=== PATIENT | female | born 1935 ===

== ENCOUNTER 2016-12-29 16:00 | Inpatient (IN) | payer MEDICARE, MEDICAID ==
[2017-01-23] MEDS ORDERED: ACETAMINOPHEN 1,000 MG/100 ML BTL IV ONE (06:00)
[2017-01-23] MEDS ORDERED: CELECOXIB 100 MG CAPSULE PO ONE (06:00)
[2017-01-23] MEDS ORDERED: METOCLOPRAMIDE 10 MG TABLET PO ONE (06:00)
[2017-01-23] MEDS ORDERED: VANCOMYCIN HCL 1,000 MG in 0.9 % SODIUM CHLORIDE 250ML 250 ML IVPB ONE (06:00)
[2017-01-23] MEDS ORDERED: MECLIZINE 25 MG TABLET PO ONE (06:00)
[2017-02-14] MEDS ORDERED: METOCLOPRAMIDE 10 MG TABLET PO ONE (06:00)
[2017-02-14] MEDS ORDERED: ACETAMINOPHEN 1,000 MG/100 ML BTL IV ONE (06:00)
[2017-02-14] MEDS ORDERED: CELECOXIB 100 MG CAPSULE PO ONE (06:00)
[2017-02-14] MEDS ORDERED: VANCOMYCIN HCL 1,000 MG in 0.9 % SODIUM CHLORIDE 250ML 250 ML IVPB ONE (06:00)
[2017-02-14] MEDS ORDERED: MECLIZINE 25 MG TABLET PO ONE (06:00)
[2017-02-14 08:59] LABS: ABO GROUP B; ANTIBODY SCREEN NEGATIVE (NEGATIVE); RH TYPE POSITIVE
[2017-02-14 13:16] LABS: IMMED. SPIN CROSSMATCH COMPATIBLE
[2017-02-14 13:18] LABS: IMMED. SPIN CROSSMATCH COMPATIBLE
[2017-02-14] MEDS ORDERED: TRAMADOL HCL 50 MG TABLET PO PRN (15:36)
[2017-02-14] MEDS ORDERED: BISACODYL 10 MG SUPP RC PRN (15:36)
[2017-02-14] MEDS ORDERED: HYDROCODONE/APAP 5/325MG TABLET PO PRN ×2 (15:36)
[2017-02-14] MEDS ORDERED: HYDROCODONE/APAP 7.5/325MG TABLET PO PRN (15:36)
[2017-02-14] MEDS ORDERED: METOCLOPRAMIDE HCL 10 MG/2 ML VIAL IVP PRN (15:36)
[2017-02-14] MEDS ORDERED: ONDANSETRON HCL IV 4 MG/2 ML VIAL IVP PRN (15:36)
[2017-02-14] MEDS ORDERED: ACETAMINOPHEN W/ CODEINE 300MG/30MG TABLET PO PRN ×2 (15:36)
[2017-02-14] MEDS ORDERED: NALOXONE 0.4 MG/1 ML VIAL IVP PRN (15:36)
[2017-02-14] MEDS ORDERED: KETOROLAC 30 MG/ML VIAL IVP PRN ×2 (15:36)
[2017-02-14] MEDS ORDERED: ACETAMINOPHEN W/ CODEINE 300MG/60MG TABLET PO PRN ×2 (15:36)
[2017-02-14] MEDS ORDERED: ZOLPIDEM TARTRATE 5 MG TABLET PO PRN (15:36)
[2017-02-14] MEDS ORDERED: HYDROMORPHONE HCL 1MG/ML **SYRINGE IM PRN (15:36)
[2017-02-14] MEDS ORDERED: PROMETHAZINE HCL 12.5 MG in 0.9 % SODIUM CHLORIDE 100ML 50 ML IVPB PRN (15:36)
[2017-02-14] MEDS ORDERED: HYDROMORPHONE HCL 2 MG/ML VIAL IM PRN (15:36)
[2017-02-14] MEDS ORDERED: MAGNESIUM HYDROXIDE 30 ML UDC PO PRN (15:36)
[2017-02-14] MEDS ORDERED: ACETAMINOPHEN 325 MG TAB PO PRN (15:36)
[2017-02-14] MEDS ORDERED: MORPHINE SULFATE 5 MG/ML PFS IVP PRN ×4 (15:36)
[2017-02-14] MEDS ORDERED: EPHEDRINE SULFATE 50 MG/ML ML IV ONE (16:23)
[2017-02-14] MEDS ORDERED: 0.9 % SODIUM CHLORIDE 10 ML VIAL IVP ONE (16:23)
[2017-02-14] MEDS ORDERED: PHENYLEPHRINE HCL 10 MG/ML VIAL IVP ONE (16:23)
[2017-02-14] MEDS ORDERED: *PACU ONLY* KETAMINE HCL 10 MG/ML (20ML) VIAL IV ONE (16:23)
[2017-02-14] MEDS ORDERED: DIPHENHYDRAMINE HCL IV 50 MG/ML VIAL IVP ONE (16:23)
[2017-02-14] MEDS ORDERED: FENTANYL PF 100MCG/2ML VIAL IV ONE (16:23)
[2017-02-14] MEDS ORDERED: PROPOFOL 10 MG/ML VIAL IV ONE (16:23)
[2017-02-14] MEDS ORDERED: MIDAZOLAM HCL 2MG/2ML VIAL IV ONE (16:23)
[2017-02-14] MEDS ORDERED: HYDROMORPHONE HCL 2 MG/ML VIAL IV ONE (16:23)
[2017-02-14] MEDS ORDERED: LIDOCAINE 2% MDV (20MG/ML) 20ML VIAL IV ONE (16:23)
--- NOTE | 2017-02-14 17:23 | Physical Therapy Tx Note ---
Physical Therapy Tx Note - Treatment Note Physical Therapy Tx Note: Detail (The patient was not seen due to HTN . Contact was made with patient and patient's family. Will see patient tomorrow.)
[2017-02-14] MEDS: DEXTROSE 5 % AND 0.9 % NACL 1,000 ML IV PRN (17:39)
[2017-02-14] MEDS: DIPHENHYDRAMINE HCL 25 MG CAPSULE PO PRN (20:55)
[2017-02-14] MEDS: FERROUS SULFATE 325 MG TAB PO SCH (21:13)
[2017-02-14] MEDS: DOCUSATE SODIUM 100 MG CAPSULE PO SCH (21:13)
[2017-02-14] MEDS: VANCOMYCIN HCL 500 MG in 0.9 % SODIUM CHLORIDE 100ML 100 ML IVPB SCH (21:25)
[2017-02-14] MEDS: HYDROCODONE/APAP 7.5/325MG TABLET PO PRN (22:20)
[2017-02-15] MEDS: DEXTROSE 5 % AND 0.9 % NACL 1,000 ML IV PRN (03:28)
[2017-02-15] MEDS: HYDROCODONE/APAP 7.5/325MG TABLET PO PRN ×4 (05:33→22:01)
[2017-02-15 06:56] LABS: HEMATOCRIT 23.2 % (35.0-47.0); HEMOGLOBIN 7.4 gm/dl (11.6-16.0)
--- NOTE | 2017-02-15 07:15 | RADIOLOGY REPORT ---
EXAM: LEFT HIP, SINGLE AP VIEW HISTORY: POSTOP. TECHNIQUE: A single AP view of the left hip was obtained. Comparison: None. FINDINGS: Osteopenia. Status post total left hip arthroplasty. Soft tissue gas and swelling is likely postoperative. IMPRESSION: LEFT HIP ARTHROPLASTY CHANGE. NO GROSS COMPLICATING PROCESS. JOB NUMBER: [id number] MTDD
[2017-02-15] MEDS: RIVAROXABAN 10 MG TABLET PO SCH (09:42)
[2017-02-15] MEDS: DOCUSATE SODIUM 100 MG CAPSULE PO SCH ×2 (09:43→22:00)
[2017-02-15] MEDS: FERROUS SULFATE 325 MG TAB PO SCH ×2 (09:43→22:00)
[2017-02-15] MEDS: DIPHENHYDRAMINE HCL 25 MG CAPSULE PO PRN ×2 (09:43→17:16)
[2017-02-15] MEDS: VANCOMYCIN HCL 500 MG in 0.9 % SODIUM CHLORIDE 100ML 100 ML IVPB SCH (09:45)
[2017-02-15] MEDS ORDERED: CELECOXIB 100 MG CAPSULE PO SCH (10:00)
[2017-02-15] MEDS ORDERED: VANCOMYCIN HCL 1 GM VIAL IVPB ONE (10:50)
[2017-02-15] MEDS ORDERED: TRANEXAMIC ACID 1,000 MG/10 ML ML IV ONE (10:50)
[2017-02-15] MEDS ORDERED: BUPIVACAINE 0.5% W/EPI MPF 30 ML VIAL IVP ONE (10:50)
--- NOTE | 2017-02-15 12:00 | Rehab Evaluation ---
Patient Information - Patient Information Diagnosis: L RIMA revision Ordered Treatment: PT Evaluate and Treat Status: Initial Evaluation Surgery: Yes Date of Surgery: 02/14/17 Past Medical/Surgical Hx: PAST MEDICAL/SURGICAL HISTORY Past Surgical History D&C; cholecystectomy; left hip hemiarthroplasty 2004; tubal ligation; total hysterectomy;left and right total knee replacement; wrist sx PMH - Respiratory Hx Respiratory Disorders Yes Hx Asthma Yes Hx Bronchitis Yes Hx Chronic Obstructive Yes Pulmonary Disease (COPD) Hx Dyspnea Yes Hx Pneumonia Yes Hx Sleep Apnea Yes Hx Tuberculosis No: past + ppd Hx of CPAP No Hx of SOB Yes Hx of Oxygen Therapy Yes Comment: hx sinus problems PMH - Cardiovascular Hx Cardiovascular Disorders Yes Hx Abnormal EKG Yes Hx Cardiac Catheterization Yes: x2 Hx Edema Yes: ankles-none today Hx Heart Attack No Hx Hypertension Yes Hx Hypotension Yes Hx Irregular Heartbeat Yes: hx A-fib Hx Coronary Artery Disease Yes Hx of Mitral Valve Prolapse Yes Exercise Tolerance Poor Hx Transient Ischemic Attacks Yes (TIA) Comment: hyperlipidemia PMH - Neuro Hx Neurological Disorders Yes Hx Dementia Yes Hx Dizziness Yes Hx Headaches Yes Hx Neuropathy No Hx Parkinson's Disease No Hx Seizures No Hx Syncope No Hx Transient Ischemic Attacks Yes (TIA) PMH - GI Hx Gastrointestinal Disorders Yes Hx Abdominal Pain Yes Hx Celiac Disease No Hx Crohn's Disease No Hx Diverticulitis No Hx Gastrointestinal Bleed No Hx Gastroesophageal Reflux Yes Hx Hepatitis/Jaundice No Hx Hiatal Hernia Yes Hx Irritable Bowel Yes: constip & loose diarrhea Hx Liver Disease No Hx Nausea/Vomiting Yes Hx Obstructive Bowel No Hx Pancreatitis No Hx Rectal Bleeding Yes: sometimes with hemmorrhoids Hx Ulcer No Hx Weight Loss/Weight Gain No Comment: constipation PMH - Hx Genitourinary Disorders Yes Hx Bladder Problem Yes: wears Depends Hx Dialysis No Hx Kidney Stones No Hx Renal Disease No Hx Urinary Tract Infection No PMH - Endocrine Hx Endocrine Disorders No Hx Diabetes No Hx Thyroid Disease No PMH - Musculoskeletal Hx Musculoskeletal Disorders Yes Hx Arthritis Yes: soteo & rheumatoid Hx Back Injury Yes: broken back Hx Fibromyalgia No Hx Gout No Hx Musculoskeletal Disease No Hx Osteoporosis Yes PMH - Psych Hx Psychiatric Problems Yes Hx Anxiety Yes Hx Behavior Problems No Hx Depression No Hx Emotional Abuse No Hx Sexual Abuse No Hx Suicide Attempt No Major Depressive Episode Yes Feelings of Hopelessness Yes PMH - Hematology/Oncology Hx Hematology/Oncology No Disorders Hx Anemia Yes Hx Blood Disorders No Hx Bruising No Hx Cancer No Hx Chemotherapy No Hx Radiation Therapy No Hx Clotting Problems No Hx Sickle Cell Disease No Hx Unexplained Bleeding No Hx Blood Transfusion Reaction No Premorbid Status: Detail (The patient was ambulatory with assistive device prior to surgery.) Social History: Detail (The patient lives with granddaughter in a 2 story home with the patient living primarily on the first floor. The patient's home has 3 steps at the enterance without handrails ( with family assisting with stairclimbing). The patient's bathroom is equipped with a tub/shower combination with a tub seat with grab bars and a raised toilet seat. Prior to admission the patient's granddaughter assisted with dressing and showering patient.. 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 The patient has a wheeled walker, cane and a wheelchair.) Precautions: [place], Fall, Other (WBAT on the L LE and RIMA precautions. The patient has a hip abductor pillow.) - Time With Patient Total Time Spent With Patient (Min): 35 Treatment Procedures: Detail (Initial Evaluation.) Subjective Information - Subjective Information Per Patient (The patient had complaints of Lhip pain level 4 at the highest which increased with movement. The patient moaned in pain when lifing leg for transfers.) Objective Data - Mental Status Patient Orientation: Person, Place (The patient knew birthdate, current month but not year. The patient thought she was in the hospital for back surgery. The patient was able to follow simple commands but became anxious with transfers and bed mobility.) - ROM Not within normal limits (R LE AROM is WNL. L LE: hip is within total hip precautions, knee and ankle AROM is WNL.) - Strength/Tone Not within normal limits (The patient's R LE strength was functional ( generally 4+ to 5/5), L LE is 3- to 3/5, patient was not able to lift LE into and out of bed.) - Bed Mobility Needs Assist (Maximal PA of 2 with supine to and from sit.) - Transfers Needs Assist (The patient acheived sit to stand transfer with moderate assist of 2. The patient achieved a bed to chair transfer with CG of 1 and verbal cues with use of wheeled walker. The patient exhibited shortness of breath with activity.) - Balance Balance Sitting: Good Balance Standing: Fair (The patient used the walker to balance but was able to balance without support when reaching back for the chair.) - Gait Detail (The patient took 4 to 5 shuffling steps from bed to chair with wheeled walker WBAT on the L LE with CG of 1 and verbal cues for proper technique.) Therapy Assessment - Therapy Assessment Detail (The patient required maximal assist with bed mobility and moderate assist with transfers. The patient was fatigued with ambulating a few steps and transferring. The patient will require several sessions of PT to achieve PT goals and may require subacute rehabilitation.) Problem List - Problem List Physical Therapy Problem List: Detail (1) Assistance with bed mobility and transfers 2) Limited ambulation with assistive device 3) Mental Status 4) Shortness of Breath with activity, Decreased ability to complete prolonged physical activity.) Goals - Goals Physical Therapy Goals: 1)The patient will ambulate with assistive device household distances with CG/ supervision. 2) The patient will ambulate on stairs with C/G , minimal assist of 1. 3) The patient will be independent with bed mobility. 4) The patient will be independent with sit to and from stand and toilet transfer. 5) The patient will be able to complete HEP with supervision of family members. 6) The patient will follow RIMA precautions with supervision and cueing of family members. Prognosis - Prognosis Moderate Plan - Plan Physical Therapy Plan: PT 1-2 times a day for gait training, transfer training, bed mobility and instruction in HEP.
[2017-02-15] MEDS ORDERED: FUROSEMIDE 20 MG TABLET PO ONE (13:03)
[2017-02-15 13:51] LABS: IMMED. SPIN CROSSMATCH COMPATIBLE
[2017-02-15 13:51] LABS: IMMED. SPIN CROSSMATCH COMPATIBLE
[2017-02-15] MEDS: AL HYDROX/MAG HYDROX 30ML UD PO PRN ×2 (14:15→22:05)
--- NOTE | 2017-02-15 15:19 | Physical Therapy Tx Note ---
Physical Therapy Tx Note - Treatment Note Tolerated: Poor Total Time Spent With Patient: 5 Physical Therapy Tx Note: Detail (Pt was supine in bed resting upon arrival. PT was notified at that time that Pt. was getting blood infusion and she was to remain supine and resting during that time and it would be approximately 6 hours. FAT PRESSROOM WORKER spoke with Pt. about continuing with ex's in bed as samantha. Pt. to be seen tomorrow for PT.) Physical Therapy Problem List: Detail (1) Assistance with bed mobility and transfers 2) Limited ambulation with assistive device 3) Mental Status 4) Shortness of Breath with activity, Decreased ability to complete prolonged physical activity.) Physical Therapy Goals: 1)The patient will ambulate with assistive device household distances with CG/ supervision. 2) The patient will ambulate on stairs with C/G , minimal assist of 1. 3) The patient will be independent with bed mobility. 4) The patient will be independent with sit to and from stand and toilet transfer. 5) The patient will be able to complete HEP with supervision of family members. 6) The patient will follow RIMA precautions with supervision and cueing of family members. Prognosis: Moderate Physical Therapy Plan: PT 1-2 times a day for gait training, transfer training, bed mobility and instruction in HEP.
--- NOTE | 2017-02-15 15:23 | Rehab Evaluation ---
Patient Information - Patient Information Diagnosis: L RIMA revision Ordered Treatment: OT Evaluate and Treat Status: Initial Evaluation Surgery: Yes (left hip arthoroplasty) Date of Surgery: 02/14/17 Past Medical/Surgical Hx: PAST MEDICAL/SURGICAL HISTORY Past Surgical History D&C; cholecystectomy; left hip hemiarthroplasty 2004; tubal ligation; total hysterectomy;left and right total knee replacement; wrist sx PMH - Respiratory Hx Respiratory Disorders Yes Hx Asthma Yes Hx Bronchitis Yes Hx Chronic Obstructive Yes Pulmonary Disease (COPD) Hx Dyspnea Yes Hx Pneumonia Yes Hx Sleep Apnea Yes Hx Tuberculosis No: past + ppd Hx of CPAP No Hx of SOB Yes Hx of Oxygen Therapy Yes Comment: hx sinus problems PMH - Cardiovascular Hx Cardiovascular Disorders Yes Hx Abnormal EKG Yes Hx Cardiac Catheterization Yes: x2 Hx Edema Yes: ankles-none today Hx Heart Attack No Hx Hypertension Yes Hx Hypotension Yes Hx Irregular Heartbeat Yes: hx A-fib Hx Coronary Artery Disease Yes Hx of Mitral Valve Prolapse Yes Exercise Tolerance Poor Hx Transient Ischemic Attacks Yes (TIA) Comment: hyperlipidemia PMH - Neuro Hx Neurological Disorders Yes Hx Dementia Yes Hx Dizziness Yes Hx Headaches Yes Hx Neuropathy No Hx Parkinson's Disease No Hx Seizures No Hx Syncope No Hx Transient Ischemic Attacks Yes (TIA) PMH - GI Hx Gastrointestinal Disorders Yes Hx Abdominal Pain Yes Hx Celiac Disease No Hx Crohn's Disease No Hx Diverticulitis No Hx Gastrointestinal Bleed No Hx Gastroesophageal Reflux Yes Hx Hepatitis/Jaundice No Hx Hiatal Hernia Yes Hx Irritable Bowel Yes: constip & loose diarrhea Hx Liver Disease No Hx Nausea/Vomiting Yes Hx Obstructive Bowel No Hx Pancreatitis No Hx Rectal Bleeding Yes: sometimes with hemmorrhoids Hx Ulcer No Hx Weight Loss/Weight Gain No Comment: constipation PMH - Hx Genitourinary Disorders Yes Hx Bladder Problem Yes: wears Depends Hx Dialysis No Hx Kidney Stones No Hx Renal Disease No Hx Urinary Tract Infection No PMH - Endocrine Hx Endocrine Disorders No Hx Diabetes No Hx Thyroid Disease No PMH - Musculoskeletal Hx Musculoskeletal Disorders Yes Hx Arthritis Yes: soteo & rheumatoid Hx Back Injury Yes: broken back Hx Fibromyalgia No Hx Gout No Hx Musculoskeletal Disease No Hx Osteoporosis Yes PMH - Psych Hx Psychiatric Problems Yes Hx Anxiety Yes Hx Behavior Problems No Hx Depression No Hx Emotional Abuse No Hx Sexual Abuse No Hx Suicide Attempt No Major Depressive Episode Yes Feelings of Hopelessness Yes PMH - Hematology/Oncology Hx Hematology/Oncology No Disorders Hx Anemia Yes Hx Blood Disorders No Hx Bruising No Hx Cancer No Hx Chemotherapy No Hx Radiation Therapy No Hx Clotting Problems No Hx Sickle Cell Disease No Hx Unexplained Bleeding No Hx Blood Transfusion Reaction No Premorbid Status: Detail (The patient was ambulatory with assistive device prior to surgery.) Social History: Detail (The patient lives with granddaughter in a 2 story home with the patient living primarily on the first floor. The patient's home has 3 steps at the entrance without handrails ( with family assisting with stairclimbing). The patient's bathroom is equipped with a tub/shower combination with a tub seat with grab bars and a standard height toilet seat with commode. Prior to admission the patient's granddaughter assisted with dressing and showering patient. 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 The patient has a wheeled walker, cane and a wheelchair.) Precautions: [place], Fall, Other (WBAT on the L LE and RIMA precautions. The patient has a hip abductor pillow.) - Time With Patient Total Time Spent With Patient (Min): 45 Treatment Procedures: Detail (OT eval moderate complexity) Subjective Information - Subjective Information Per Patient Objective Data - Pain Pain Present: Yes (09/12 left hip) - Mental Status Patient Orientation: Person (Pt oriented to birthday, age, month, "hospital", reports she is here a back operation and was unsure of the year.) - Visual Perception Appears within normal limits for therapeutic activities (Pt wears glasses at all times.) - ROM Not within normal limits (Tyree UE grossly WNL with the exception of left shoulder flexion which is limited from arthritis per granddaughter.) - Strength/Tone Not within normal limits (Right shoulder, tyree elbows, pharmacist in charge 4+/5, left shoulder 4 -/5 within AROM limitations.) - Coordination Appears within normal limits for therapeutic activities - Bed Mobility Dependent (Max assist x 2 for supine to sit.) - Transfers Needs Assist (Sit to stand with mod assist x 2 to walker.) - Balance Balance Sitting: Good Balance Standing: Fair - Sensation Intact - Gait Detail (Pt able to take several small steps from EOB to chair with 2 wheeled walker and contact guard assist.) - ADL's/IADL's Detail (Pt using catheter at this time. Pt educated re: RIMA precautions and was able to use avionics systems engineer to don PJ bottoms with verbal cues. She required min assist for sit to stand and min assist to pull pants over hips in standing. Required min assist to don left shoe. Pt was very fatigued and short of breath therefore cont. teaching will be required.) Therapy Assessment - Therapy Assessment Detail (Pt requires mod-max assist for mobility, demos partial learning of LE dressing using adaptive equipment but will require cont. education, she presents with decreased endurance/increased shortness of breath with activity.) Problem List - Problem List Physical Therapy Problem List: Detail (1) Assistance with bed mobility and transfers 2) Limited ambulation with assistive device 3) Mental Status 4) Shortness of Breath with activity, Decreased ability to complete prolonged physical activity.) Occupational Therapy Problem List: Detail (1. Decreased Ind with self care activities 2. Decreased endurance 3. Decreased functional mobility) Goals - Goals Physical Therapy Goals: 1)The patient will ambulate with assistive device household distances with CG/ supervision. 2) The patient will ambulate on stairs with C/G , minimal assist of 1. 3) The patient will be independent with bed mobility. 4) The patient will be independent with sit to and from stand and toilet transfer. 5) The patient will be able to complete HEP with supervision of family members. 6) The patient will follow RIMA precautions with supervision and cueing of family members. Occupational Therapy Goals: 1. Pt will be Ind with LE dressing using adaptive equipment while maintaining RIMA precautions. 2. Pt will be Ind with bed mobility 3. Pt will be Ind with sit to stand to allow Ind with LE dressing Prognosis - Prognosis Good Plan - Plan Physical Therapy Plan: PT 1-2 times a day for gait training, transfer training, bed mobility and instruction in HEP. Occupational Therapy Plan: OT 2-4 days per week to address self cares, functional mobility and endurance. She may benefit from short term rehab placement to maximize her safety and allow return home with family.
[2017-02-15] MEDS ORDERED: [UNRECOGNIZED DRUG - OTHER] TOP PRN (16:23)
[2017-02-15] MEDS ORDERED: DIPHENHYDRAMINE HCL IV 50 MG/ML VIAL IVP ONE (21:38)
[2017-02-16] MEDS: HYDROCODONE/APAP 7.5/325MG TABLET PO PRN ×4 (01:47→22:46)
[2017-02-16 06:38] LABS: HEMATOCRIT 27.1 % (35.0-47.0); HEMOGLOBIN 8.7 gm/dl (11.6-16.0)
[2017-02-16] MEDS: FERROUS SULFATE 325 MG TAB PO SCH ×2 (09:52→22:47)
[2017-02-16] MEDS: TRAMADOL HCL 50 MG TABLET PO PRN ×2 (09:52→18:03)
[2017-02-16] MEDS: DOCUSATE SODIUM 100 MG CAPSULE PO SCH ×2 (09:53→22:51)
[2017-02-16] MEDS: RIVAROXABAN 10 MG TABLET PO SCH (09:53)
--- NOTE | 2017-02-16 13:30 | Physical Therapy Tx Note ---
Physical Therapy Tx Note - Treatment Note Tolerated: Good (Pt. reported increased pain with bed mobility. Pt. was A&O x3.) Total Time Spent With Patient: 45 Physical Therapy Tx Note: Detail (Pt. performed supine to sit transfer with max assist x2. Pt. performed sit to stand transfer with moderate assistance x1. Pt. required verbal and tactile cueing to position her hip during transfers to avoid breaking hip precautions. Pt. exhibited poor safety awareness while standing at bedside. Pt. required max assistance and verbal cueing to engage her gluteal muscles and back extensors to stand upright with front wheeled walker. Pt. stood for ~2 minutes and transitioned ~25-50% BW onto her LLE before request to be positioned back in bed. Pt. denied bed exercises and seated exercise. Pt. was left supine with call light available, B IPC, cryo left hip, and nursing was notified of pt.'s status. Pt. could not accurately objectify her pain at end of tx session.) Physical Therapy Problem List: Detail (1) Assistance with bed mobility and transfers 2) Limited ambulation with assistive device 3) Mental Status 4) Shortness of Breath with activity, Decreased ability to complete prolonged physical activity.) Physical Therapy Goals: 1)The patient will ambulate with assistive device household distances with CG/ supervision. 2) The patient will ambulate on stairs with C/G , minimal assist of 1. 3) The patient will be independent with bed mobility. 4) The patient will be independent with sit to and from stand and toilet transfer. 5) The patient will be able to complete HEP with supervision of family members. 6) The patient will follow RIMA precautions with supervision and cueing of family members. Prognosis: Good Physical Therapy Plan: PT 1-2 times a day for gait training, transfer training, bed mobility and instruction in HEP.
--- NOTE | 2017-02-16 18:04 | Physical Therapy Tx Note ---
Physical Therapy Tx Note - Treatment Note Tolerated: Fair Total Time Spent With Patient: 30 Physical Therapy Tx Note: Detail (Pt reclined in bed upon arrival, awake/alert. Cooperative for getting out of bed. Required heavy moderate assist of two for bed mobility and coming to sit at edge of bed, for L LE and for trunk. Pt vocalized loudly indicating discomfort or apprehension quite a bit during bed mobility, coming to sit, and with transfer to bedside chair. She was able to scoot forward on the edge of the bed w/o assist, but then required heavy moderate assist of 2 to pivot transfer to bedside chair. Performed 10 reps each of heel slides, knee extension, ankle pumps B. Placed cryopack onto L hip in chair; placed call light and bedside table next to pt. Nrsg notified.) Physical Therapy Problem List: Detail (1) Assistance with bed mobility and transfers 2) Limited ambulation with assistive device 3) Mental Status 4) Shortness of Breath with activity, Decreased ability to complete prolonged physical activity.) Physical Therapy Goals: 1)The patient will ambulate with assistive device household distances with CG/ supervision. 2) The patient will ambulate on stairs with C/G , minimal assist of 1. 3) The patient will be independent with bed mobility. 4) The patient will be independent with sit to and from stand and toilet transfer. 5) The patient will be able to complete HEP with supervision of family members. 6) The patient will follow RIMA precautions with supervision and cueing of family members. Prognosis: Good Physical Therapy Plan: PT 1-2 times a day for gait training, transfer training, bed mobility and instruction in HEP.
[2017-02-17] MEDS: HYDROCODONE/APAP 7.5/325MG TABLET PO PRN ×2 (05:31→13:52)
[2017-02-17 06:41] LABS: HEMATOCRIT 26.7 % (35.0-47.0); HEMOGLOBIN 8.3 gm/dl (11.6-16.0)
[2017-02-17] MEDS: FERROUS SULFATE 325 MG TAB PO SCH (10:10)
[2017-02-17] MEDS: RIVAROXABAN 10 MG TABLET PO SCH (10:10)
--- NOTE | 2017-02-17 11:49 | Consult ---
Consult Order Detail - Reason for Consult Consult Date: 02/15/17 - Chief Complaint Chief Complaint: LOOSENING HIP PROSTHETIC LEFT HPI Consult - History of Present Illness Admitting Diagnosis: DJD History of Present Illness: Mrs. Aguilera is an 81 y/o female who is admitted post-operatively after having total left hip arthoplasty on 02/14/17. She has a history of degenerative joint disease and advanced dementia. Intraoperatively the patient lost blood requiring 2 units prbc. Hb was 7.4 post-op and she received an additional 2 units prbc with stabalization of Hb. The patient on examination, is awake and alert but poorly oriented. She is cooperative and reports significant tenderness over the left hip. The patient has been cooperative with PT/OT treatments and able to tolerate the prescribed treatment plan. ROS ROS unobtainable: Due to mental status (limited due to advanced dementia) - Respiratory Respiratory: Reports: As per HPI. Denies: Cough, Dyspnea, Hemoptysis, Stridor, Wheezes - Cardiovascular Cardiovascular: Reports: As per HPI. Denies: Arrhythmia, Chest pain, Dyspnea on exertion, Edema, Murmurs, Orthopnea, Palpitations, Paroxysmal nocturnal dyspnea, Rheumatic Fever, Syncope - Genitourinary Genitourinary: Denies: Frequency - Musculoskeletal Musculoskeletal: Reports: Back pain (lower back pain), Other (left hip pain) - Neurological Neurological: Reports: Confusion Past Medical History - SOCIAL HISTORY Smoking Status: Former smoker Alcohol Use: None Drug Use: None - RESPIRATORY Hx Respiratory Disorders: Yes Hx Bronchitis: Yes Hx COPD: Yes Hx Dyspnea: Yes Hx Pneumonia: Yes Hx Sleep Apnea: Yes Hx Tuberculosis: No (past + ppd) Hx of CPAP: No Comment:: hx sinus problems - CARDIOVASCULAR Hx Cardio Disorders: Yes Hx Abnormal EKG: Yes Hx Cardiac Cath: Yes (x2) Hx Edema: Yes (ankles-none today) Hx Heart Attack: No Hx Hypertension: Yes Hx Hypotension: Yes Hx Irregular Heartbeat: Yes (hx A-fib) Hx Coronary Artery Disease: Yes Comment:: hyperlipidemia - NEURO Hx Neuro Disorders: Yes Hx Dementia: Yes Hx Dizziness: Yes Hx Headaches: Yes Hx Neuropathy: No Hx Parkinson's Disease: No Hx Seizures: No Hx TIA: Yes - GI Hx GI Disorders: Yes Hx Abdominal Pain: Yes Hx Celiac Disease: No Hx Crohn's Disease: No Hx Diverticulitis: No Hx GI Bleed: No Hx Reflux: Yes Hx Hepatitis/Jaundice: No Hx Hiatal Hernia: Yes Hx Irritable Bowel: Yes (constip & loose diarrhea) Hx Liver Disease: No Hx Nausea/Vomiting: Yes Hx Obstructive Bowel: No Hx Pancreatitis: No Hx Rectal Bleeding: Yes (sometimes with hemmorrhoids) Hx Ulcer: No Hx Wt Loss/Wt Gain: No Hx of Polyps: Yes (colon) Comment:: constipation - Hx Genitourinary Disorders: Yes Hx Bladder Problem: Yes (wears Depends) Hx Dialysis: No Hx Kidney Stones: No Hx Renal Disease: No Hx UTI: No - ENDOCRINE Hx Endocrine Disorders: No Hx Diabetes: No Hx Thyroid Disease: No - MUSCULOSKELETAL Hx Musculoskeletal Disorders: Yes Hx Arthritis: Yes (soteo & rheumatoid) Hx Back Injury: Yes (broken back) Hx Fibromyalgia: No Hx Gout: No Hx Musculoskeletal Disease: No Hx Osteoporosis: Yes - PSYCH Hx Psych Problems: Yes Hx Anxiety: Yes Hx Behavior Problems: No Hx Depression: No Hx Emotional Abuse: No Hx Sexual Abuse: No Hx Suicide Attempt: No Major Depressive Episode: Yes Feelings of Hopelessness: Yes - HEMATOLOGY/ONCOLOGY Hx Hematology/Oncology Disorders: No Hx Anemia: Yes Hx Blood Disorders: No Hx Bruising: No Hx Cancer: No Hx Chemotherapy: No Hx Radiation Therapy: No Hx Clotting Problems: No Hx Sickle Cell Disease: No Hx Unexplained Bleeding: No Hx Blood Transfusions: No Hx Blood Transfusion Reaction: No Family Medical History Any Significant Family History?: Yes Hx Anxiety: Brother/Sister Hx Cancer: Father, Brother/Sister *Cancer Comment: sister-leukemia Hx Dementia: Brother/Sister Hx Diabetes: Father Hx Heart Disease: Mother, Children Hx Resp Disorders: Father, Brother/Sister Hx Stroke: Children H&P Meds - Home Medications and Allergies Allergies Allergy/AdvReac Type Severity Reaction Status Date / Time codeine Allergy Intermediate ABDOMINAL Verified 12/29/16 15:49 PAIN donepezil [From Aricept] Allergy Intermediate ABDOMINAL Verified 02/14/17 09:32 CRAMPS famotidine [From Pepcid] Allergy Intermediate ABDOMINAL Verified 12/29/16 15:49 PAIN meclizine [From Antivert] Allergy Intermediate DIZZINESS Verified 02/14/17 08:29 vancomycin Allergy Intermediate HIVES Verified 02/14/17 10:09 adhesive tape AdvReac Intermediate SKIN Verified 02/14/17 08:29 IRRITATION celecoxib [From Celebrex] AdvReac Intermediate GI bleed Verified 02/14/17 08:30 Physical Exam - Vital Signs Vital Signs: Vital Signs - Last 24 Hrs Temp Pulse Resp BP Pulse Ox 02/17/17 07:04 97.8 F 73 18 134/71 99 02/16/17 18:30 97.8 F 83 18 147/80 97 02/16/17 13:20 98.9 F 87 18 136/79 95 - General General Appearance: Alert, Cooperative, No acute distress Limitations: Altered mental status, Physical limitation - Head Head exam: Atraumatic - ENT ENT exam: Normal exam Ear exam: Normal external inspection - Respiratory Respiratory exam: Normal lung sounds bilaterally, Accessory muscle use - Cardiovascular Cardiovascular Exam: Regular rate, Normal rhythm Peripheral Pulses: 2+: Radial (R), Radial (L) - GI/Abdominal GI/Abdominal exam: Soft, Normal bowel sounds - Rectal Rectal exam: Deferred - exam: Deferred - Neurological Neurological exam: Abnormal gait, Alert, Altered, Other (not able to complete neurological examination due to mental status). negative: Oriented X3 - Psychiatric Psychiatric exam: negative: Agitated, Anxious - Skin Skin exam: Other (dressing over left hip clean ) Results - Labs Result Diagrams: 02/17/17 06:10 Labs Last 24 Hours: Laboratory Results - last 24 hr 02/17/17 06:10 Hgb 8.3 L Hct 26.7 L Assessment and Plan - Assessment and Plan (1) Acute blood loss anemia Plan: Intraoperatively the patient required 2 units PRBC due to blood loss, Hb was 7.4 mg/dL. She received an additional 2 units on post op day #1. Hb has been >8 since her most recent transfusion and there is no bleeding noted from surgical site. Continue H+H checks Q24H and transfuse PRBC to keep Hb >7 mg/dL. Status: Acute Base Code: D62 - ACUTE POSTHEMORRHAGIC ANEMIA (2) Dementia Plan: This is an 81 y/o female with history of chronic arthritis who was admitted s/p left total hip arthroplasty. The patient has advanced dementia but has been somewhat cooperative and able to tolerate post-operative plan of care. Recommend continued PT/OT with plans for swing bed placement for further therapy and management prior to going home. Status: Chronic Qualifiers: Dementia type: Alzheimer's disease Base Code: F03.90 - UNSPECIFIED DEMENTIA WITHOUT BEHAVIORAL DISTURBANCE - Disposition Disposition: The patient does not require any further inpatient medical management at this time and would benefit from further physical therapy and gait assessment before returning home. Swing bed would be appropriate for continued assessment and planning.
--- NOTE | 2017-02-17 15:35 | Physical Therapy Tx Note ---
Physical Therapy Tx Note - Treatment Note Tolerated: Good Total Time Spent With Patient: 30 Physical Therapy Tx Note: Detail (The patient was in bed when PT arrived. The patient acheived bed mobility with maximal PA of 2. The patient required moderate PA of 2 to scoot forward in a sitting position. The patient achieved sit to stand with moderate PA of 2. The patient acheived bed to commode transfer with CG of 1. The patient ambulated 3 to 4 steps from commode to recliner. The patient required verbal cues not to sit quickly. The patient completed the following LE exercises: gluteal sets, quad sets and ankle pumps all x 5 reps.) Physical Therapy Problem List: Detail (1) Assistance with bed mobility and transfers 2) Limited ambulation with assistive device 3) Mental Status 4) Shortness of Breath with activity, Decreased ability to complete prolonged physical activity.) Physical Therapy Goals: 1)The patient will ambulate with assistive device household distances with CG/ supervision. 2) The patient will ambulate on stairs with C/G , minimal assist of 1. 3) The patient will be independent with bed mobility. 4) The patient will be independent with sit to and from stand and toilet transfer. 5) The patient will be able to complete HEP with supervision of family members. 6) The patient will follow RIMA precautions with supervision and cueing of family members. Physical Therapy Plan: PT 1-2 times a day for gait training, transfer training, bed mobility and instruction in HEP.
--- NOTE | 2017-02-22 09:48 | Operative Note ---
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 OPERATION: Resection arthroplasty, hemiarthroplasty, and conversion to total hip arthroplasty, cemented. Surgeon: Shaheen Duran MD Anesthesia: Spinal, sedation, SERA Nur COMPLICATIONS: None. Estimated Blood Loss: 500 mL OPERATIVE FINDINGS: Completely failed loose [place] hemiarthroplasty with thinning and a windshield wiper effect distally, thinning of the cortex. COMPONENTS PLACED: A 2 g vancomycin cemented Fra[employer]o [employer] long stem revision hip arthroplasty system size 25, size 225 mm by 16 mm diameter, standard offset with a 32 plus 16 cobalt chrome head, a 52 mm 3-hole Reflection acetabular shell component with 1 acetabular screw 45 mm, 2 screw caps, centrally-threaded screw cap, and a 35-degree hooded high crosslinked polyethylene liner. Indication: This is an 81-year-old female who is well known to me. She is status post Fredo hemiarthroplasty done about 17 years ago for a left femoral neck fracture. Arthroplasty failed , completely loosen, developed pain, significant limb length discrepancy and need for revision. I explained to patient and patient's family all risks and benefits in detail for the diagnosis and procedure including but not limited to infection, nerve injury, vessel injury, persistent pain, stiffness, numbness, tingling in her hip, periprosthetic fracture, need for resection arthroplasty if components become infected or loosen, limb length discrepancy, need for further procedures, nonunion, malunion, blood clot, need for anticoagulation medications for blood clots. All her questions were answered. The course was outlined. She agreed to proceed. PROCEDURE: She was brought to the OR, and placed in the supine position, preoperative antibiotics given prior to surgery. Her right lateral decubitus position. After spinal anesthesia induced and sedation was given, left lower extremity prepped and draped in usual sterile fashion. Prepped using Chloraprep and draped. An intraoperative timeout was performed. Next, she had a previous posterior approach to the hip. It was infiltrated with 0.5% Marcaine with epinephrine. Skin and subcutaneous dissected down to gluteal fascia. We dissected down the interval between the gluteal and the short external rotators. Identified sciatic nerve and carefully protected at all times. Brought in self retainer. Next, removed scar capsule posterior, sent that to pathology and culture. Opened the capsule and dislocated the hip joint and the [place] replacement pulled out by hand easily. Next, we continued to remove all cement proximally using cement osteotomes, flexible and rigid osteotomes, pituitary rongeurs, and continued distally to the cement plug. Once we were right at the cement plug, we then drilled a few holes and then also used the rigid cement chisels to split and loosen that up and we were able to eventually pull it proximally out completely. Now we had the canal completely open. We then prepared femoral canal reaming working in 2 mm increments to a size 12, 14 to a 16. We stopped there and trialed the 16 x 22 mm stem. Fluoroscopy images used through the entire case. Stem fit nicely and it bypassed our distal cortical thinning at the previous tip location of the [place] replacement nicely by several cortical diameters. Next, attention turned to the acetabulum. Exposed the acetabulum. Resected the labrum around the periphery of the scar and deep. Started reaming in 1 mm increments, 44 mm reamer, reaming in 45 degrees of inclination, 20 degrees anteverted until we reamed up to a size 51. We stopped there and trialed a 52, had a nice fit. Changed gloves and irrigated copiously, placed some bone graft cement from the reaming in the acetabulum and packed down the real 3-hole acetabular component using a helicopter guide in 45 degrees inclination and 20 degrees anteversion until we had the appropriate depth and it was secure. Next, we drilled a posterior central superior quadrant screw hole. Measured the screw to be 45 mm and inserted that screw. Had a good purchase. We kept the other 2 screw holes[address] Placed a trial liner and did a trial reduction. Best combination of range of motion, stability and trying to approximate her leg lengths although she is still short. She had severe limb length discrepancies due to the cortical and calcar erosions with +16 mm femoral head component. This allowed for good stability reduction and good tension on the abductors without overstuffing. Limb length was approximately equal. That is the size we used. Next, then mixed cement, re-dislocated the hip and removed all trial components , irrigated the acetabulum component. Placed a centrally-threaded screw cap, impacted down the real 35-degree hooded poly insert with the ruffin in posterior quadrant until it was secure. Next, we placed the cement restrictor distally and again visualized under C-arm appropriate placement. Then injected the cement in 3rd generation cement technique. Removed the suction catheter. Then inserted the stem by hand in 15 degrees of anteversion until the collar was flush with our remaining calcar and held it there until the cement hardened, packing around the proximal stem. Once the cement hardened, we cleaned and dried the trunnion and then impacted down the real +16 femoral head component, reduced the hip and found that the range of motion, stability, and leg lengths were the same. Irrigated the wound. Closed the gluteal fascia with running #2 Quill. Injected the periphery with several multiple sticks of the 0.5% Marcaine with epinephrine , tranexamic acid, and Exparel cocktail deep and superficially in the entire wound area. Closed the gluteal fascia with running #2 Quill, closed the skin with 2-0 Vicryl and tg and injected 0.5% Marcaine with epi again. Sterile dressing applied. Abduction pillow. Postop x-rays with good fit, orientation, performance. Patient tolerated the procedure well. No intraoperative complications. All sponge and needle counts correct. Recovery stable. Neuro is intact. Discharged to the floor for pain control, IV antibiotics, and rehab. Likely discharged in 3 days to rehab. JEFFERY
== END 2017-02-17 14:21 | disposition swing bed (61) | DRG 468 ==
LOC: MEDSURG 02-14 07:52
PROVIDERS: ADMIT Orthopaedic Surgery; ATTEND Orthopaedic Surgery
PROC: 0SPB0JZ Removal of Synthetic Substitute from Left Hip Joint, Open Approach (ICD-10-PCS; 2017-02-14)
PROC: 0SRB049 Replacement of Left Hip Joint with Ceramic on Polyethylene Synthetic Substitute, Cemented, Open Approach (ICD-10-PCS; principal; 2017-02-14 10:00)
DX: T84.031A Mechanical loosening of internal left hip prosthetic joint, initial encounter (principal); I10 Essential (primary) hypertension; E78.00 Pure hypercholesterolemia, unspecified; J44.9 Chronic obstructive pulmonary disease, unspecified; G30.9 Alzheimer's disease, unspecified; F02.80 Dementia in other diseases classified elsewhere, unspecified severity, without behavioral disturbance, psychotic disturbance, mood disturbance, and anxiety
CPT/HCPCS: 36430; 76000; 85014; 85018; 86850; 86900; 86901; 87070; 93005; 93010; 94760; 97110; 97166; 97530; C1776; J1200; J1885; J2370; J3370; J7042; J7050

== ENCOUNTER 2017-02-17 08:48 | Inpatient (IN) | payer MEDICARE, MEDICAID ==
--- NOTE | 2017-02-17 14:48 | Rehab Evaluation ---
Patient Information - Patient Information Diagnosis: L RIMA revision Ordered Treatment: PT Evaluate and Treat Status: Initial Evaluation Surgery: Yes Date of Surgery: 02/07/17 (RIMA revision) Past Medical/Surgical Hx: PAST MEDICAL/SURGICAL HISTORY Past Surgical History D&C; cholecystectomy; left hip hemiarthroplasty 2004; tubal ligation; total hysterectomy;left and right total knee replacement; wrist sx PMH - Respiratory Hx Respiratory Disorders Yes Hx Asthma Yes Hx Bronchitis Yes Hx Chronic Obstructive Yes Pulmonary Disease (COPD) Hx Dyspnea Yes Hx Pneumonia Yes Hx Sleep Apnea Yes Hx Tuberculosis No: past + ppd Hx of CPAP No Hx of SOB Yes Hx of Oxygen Therapy Yes Comment: hx sinus problems PMH - Cardiovascular Hx Cardiovascular Disorders Yes Hx Abnormal EKG Yes Hx Cardiac Catheterization Yes: x2 Hx Edema Yes: ankles-none today Hx Heart Attack No Hx Hypertension Yes Hx Hypotension Yes Hx Irregular Heartbeat Yes: hx A-fib Hx Coronary Artery Disease Yes Hx of Mitral Valve Prolapse Yes Hx Transient Ischemic Attacks Yes (TIA) Comment: hyperlipidemia PMH - Neuro Hx Neurological Disorders Yes Hx Dementia Yes Hx Dizziness Yes Hx Headaches Yes Hx Neuropathy No Hx Parkinson's Disease No Hx Seizures No Hx Syncope No Hx Transient Ischemic Attacks Yes (TIA) PMH - GI Hx Gastrointestinal Disorders Yes Hx Abdominal Pain Yes Hx Celiac Disease No Hx Crohn's Disease No Hx Diverticulitis No Hx Gastrointestinal Bleed No Hx Gastroesophageal Reflux Yes Hx Hepatitis/Jaundice No Hx Hiatal Hernia Yes Hx Irritable Bowel Yes: constip & loose diarrhea Hx Liver Disease No Hx Nausea/Vomiting Yes Hx Obstructive Bowel No Hx Pancreatitis No Hx Rectal Bleeding Yes: sometimes with hemmorrhoids Hx Ulcer No Hx Weight Loss/Weight Gain No Comment: constipation PMH - Hx Genitourinary Disorders Yes Hx Bladder Problem Yes: wears Depends Hx Dialysis No Hx Kidney Stones No Hx Renal Disease No Hx Urinary Tract Infection No PMH - Endocrine Hx Endocrine Disorders No Hx Diabetes No Hx Thyroid Disease No PMH - Musculoskeletal Hx Musculoskeletal Disorders Yes Hx Arthritis Yes: soteo & rheumatoid Hx Back Injury Yes: broken back Hx Fibromyalgia No Hx Gout No Hx Musculoskeletal Disease No Hx Osteoporosis Yes PMH - Psych Hx Psychiatric Problems Yes Hx Anxiety Yes Hx Behavior Problems No Hx Depression No Hx Emotional Abuse No Hx Sexual Abuse No Hx Suicide Attempt No PMH - Hematology/Oncology Hx Hematology/Oncology No Disorders Hx Anemia Yes Hx Blood Disorders No Hx Bruising No Hx Cancer No Hx Chemotherapy No Hx Radiation Therapy No Hx Clotting Problems No Hx Sickle Cell Disease No Hx Unexplained Bleeding No Hx Blood Transfusion Reaction No Premorbid Status: Detail (The patient was ambulatory with assistive device prior to surgery.) Social History: Detail (The patient lives with cari in a 2 story home with the patient living primarily on the first floor. The patient's home has 3 steps at the enterance without handrails ( with family assisting with stairclimbing). The patient's bathroom is equipped with a tub/shower combination with a tub seat with grab bars and a raised toilet seat. Prior to admission the patient's graddaughter assisted with dressing and showering the patient. The patient was not completing photographer still. The patient has a wheeled walker, cane and a wheelchair.) Precautions: [place], Fall, Other (WBAT on the L LE and RIMA precautions. The patient has a hip abductor pillow.) - Time With Patient Total Time Spent With Patient (Min): 30 Treatment Procedures: Detail (Initial Evaluation, gait training.) Subjective Information - Subjective Information Per Patient (The patient has complaints of hip pain with movement. The patient also complains of L shoulder pain. The patient did not rate her pain using the 0 -10 pain scale.) Objective Data - Mental Status Patient Orientation: Person, Place (The patient knew birthdate, current month but not year. The patient follows simple commands but because anxious with transfers and bed mobility.) - ROM Not within normal limits (The patient's R LE AROM is WNL. L LE is within total hip precautions, knee and ankle AROM is WNL.) - Strength/Tone Not within normal limits (The patient's R LE strength is generally 4+ to 5/5, L LE strength is in hip 3- to 3/5, knee and ankle musculature is 4/5.) - Bed Mobility Needs Assist (maximal PA of 2 with supine to and from sit. Patient screams in pain throughout transfer. The patient was able to scoot forward with moderate PA of 2.) - Transfers Needs Assist (sit to and from stand transfer was moderate PA of 2. Bed to commode transfer with use of wheeled walker with CG of 1.) - Balance Balance Sitting: Good Balance Standing: Fair (The patient is able to stand without support with bathroom hygiene.) - Gait Detail (The patient ambulates with 4 to 5 shuffling steps with WBAT on the L LE with CG of 1 and verbal cues for proper technique.) Therapy Assessment - Therapy Assessment Detail (The patient requires assistance with all mobility, transfers and ambulation. The patient requires maximal verbal encouragement to ambulate. The patient's mobility is limited due to L hip and shoulder pain complaints.) Problem List - Problem List Physical Therapy Problem List: Detail (1) Assistance with bed mobility and transfers 2) Limited ambulation with assistive device 3) Mental status 4) shortness of breath with activity 5) Decreased ability to complete prolonged physical activity) Goals - Goals Physical Therapy Goals: 1) The patient will ambulate with assistive device household distances with CG/supervision. 2) The patient will amulate on stairs with CG/minimal assist of 1. 3) the patient will be independent with sit to and from stand transfer and toilet transfer. 4) The patient will be independent with bed mobility. 5) The patient will be able to complete HEP with supervision of family members. 6) The patient will follow RIMA precautions with supervison and cueing of family members Prognosis - Prognosis Good, Moderate Plan - Plan Physical Therapy Plan: PT M-F 1 to 2 times a day for gait training, transfer training, bed mobility and instruction in HEP.
[2017-02-17] MEDS ORDERED: AL HYDROX/MAG HYDROX 30ML UD PO PRN (15:25)
[2017-02-17] MEDS ORDERED: MAGNESIUM HYDROXIDE 30 ML UDC PO PRN (15:28)
--- NOTE | 2017-02-17 21:00 | History & Physical ---
History of Present Illness - Date Date of Service for History & Physical: 02/18/17 - History of Present Illness Admitting Diagnosis: left total hip replacement History of Present Illness: Mrs. Aguilera is an 81 y/o female who is admitted to swing bed after having been recently discharged from [facility] status post total left hip athroplasty. Post-operatively the patient's blood loss required the transfusion of 2 units PRBC with marginal increase in the hemoglobin. Pos-operative day #2 the patient was administered and additional 2 units of PRBC and hemoglobin stabilized. In addition to her history of degenerative joint disease resulting in left hip replacement the patient has a history of Alzheimer's dementia and requires assistance with daily living. On evaluation today, the patient is wake, alert and somewhat cooperative although she does complain of pain over the site of surgery. She has been able to participate in some PT/OT activity which will be ongoing as she transitions from inpatient to swing bed. General - Cognitive Patterns Speech: Normal Thought Process: Circumstantial Thought Content: Normal Orientation: Person Brief Interview for Mental Status Score: 3 - Communication Preferred Language?: Bulgarian Gear Generator Set Up Operator Required: Yes Comprehension Ability: No Impairment Able to Read: Yes Able to Write: Yes Ability to express ideas and wants: Understood Understanding verbal content: Usually Understands - Mood and Behavior Patterns Appearance: Disheveled Mood: Normal Attitude: Guarded Motor Activity: Calm Hallucinations: Denies - Psychosocial Well-Being Usual Living Arrangement: Other Living Arrangement Comment: lives with Caitlin ([facility]) Relationship Status: / Current and Past Employment History: Retired Verbalizes Interest in Activities During Stay: No Specify Interests: could not remember interests at time of conversation Personality: Extroverted States they do not want to participate in group activities: Yes Patient Involved in the Community: No Patient Drives: No Patients Leisure Activities Prior to Admission: three dogs at home - Physical Functioning Activity Level: Up with assist x2 Turning: With partial assist ROM Ability: Limited/Compromised Assistive Devices: 2 Wheel Walker Ambulation Ability: Dependent Bed Mobility: Dependent Transfer Ability: Dependent Bathing Ability: Dependent Personal Hygiene: Dependent Dressing Ability: Dependent Eating (Feeding) Ability: Independent Toileting Ability: Dependent Administer Own Medication: Independent - Continence Bladder Pattern: Normal - Dental Status Unable to examine: Not Assessed/No Information Broken or loosely fitting full or partial dentures: Not Assessed/No Information No natural teeth or tooth fragment(s) (edentulous): Not Assessed/No Information Abnormal mouth tissue (ulcers, masses, oral lesions, etc.): Not Assessed/No Information Obvious or likely cavity or broken natural teeth: Not Assessed/No Information Inflamed or bleeding gums or loose natural teeth: Not Assessed/No Information Mouth/facial pain, discomfort or difficulty chewing: Not Assessed/No Information - Nutrition Screening Poor oral intake > 1 week: No Unplanned weight loss in specified time frame: No Nutrition Support via tube feedings or parenteral nutrition: No Pressure Ulcer: No Significantly underweight define as BMI <18.5 kg/m2: No Albumin <2.5mg/dL: No Persistent nausea/vomiting/diarrhea >3 days: No Difficulty chewing/swallowing/mouth sores: No Admitting Diagnosis: Yes Nutrition Risk Score: Low Risk Review of Systems ROS unobtainable: Due to mental status (limited due to mental status ) Musculoskeletal: Reports: Back pain, Other (left leg pain) Past Medical History - SOCIAL HISTORY Smoking Status: Former smoker Alcohol Use: None - SURGICAL HISTORY Past Surgical History: D&C; cholecystectomy; left hip hemiarthroplasty 2004; tubal ligation;. total hysterectomy;left and right total knee replacement;. wrist sx - RESPIRATORY Hx Respiratory Disorders: Yes Hx Bronchitis: Yes Hx COPD: Yes Hx Dyspnea: Yes Hx Pneumonia: Yes Hx Sleep Apnea: Yes Hx Tuberculosis: No (past + ppd) Comment:: hx sinus problems - CARDIOVASCULAR Hx Cardio Disorders: Yes Hx Abnormal EKG: Yes Hx Cardiac Cath: Yes (x2) Hx Edema: Yes (ankles-none today) Hx Heart Attack: No Hx Hypertension: Yes Hx Hypotension: Yes Hx Irregular Heartbeat: Yes (hx A-fib) Comment:: hyperlipidemia - NEURO Hx Neuro Disorders: Yes Hx Dementia: Yes Hx Dizziness: Yes Hx Headaches: Yes Hx Neuropathy: No Hx Parkinson's Disease: No Hx Seizures: No Hx TIA: Yes - GI Hx GI Disorders: Yes Hx Abdominal Pain: Yes Hx Celiac Disease: No Hx Crohn's Disease: No Hx Diverticulitis: No Hx GI Bleed: No Hx Reflux: Yes Hx Hepatitis/Jaundice: No Hx Hiatal Hernia: Yes Hx Irritable Bowel: Yes (constip & loose diarrhea) Hx Liver Disease: No Hx Nausea/Vomiting: Yes Hx Obstructive Bowel: No Hx Pancreatitis: No Hx Rectal Bleeding: Yes (sometimes with hemmorrhoids) Hx Ulcer: No Hx Wt Loss/Wt Gain: No Comment:: constipation - Hx Genitourinary Disorders: Yes Hx Bladder Problem: Yes (wears Depends) Hx Dialysis: No Hx Kidney Stones: No Hx Renal Disease: No Hx UTI: No - ENDOCRINE Hx Endocrine Disorders: No Hx Diabetes: No Hx Thyroid Disease: No - MUSCULOSKELETAL Hx Musculoskeletal Disorders: Yes Hx Arthritis: Yes (soteo & rheumatoid) Hx Back Injury: Yes (broken back) Hx Fibromyalgia: No Hx Gout: No Hx Musculoskeletal Disease: No Hx Osteoporosis: Yes - PSYCH Hx Psych Problems: Yes Hx Anxiety: Yes Hx Behavior Problems: No Hx Depression: No Hx Emotional Abuse: No Hx Sexual Abuse: No Hx Suicide Attempt: No - HEMATOLOGY/ONCOLOGY Hx Hematology/Oncology Disorders: No Hx Anemia: Yes Hx Blood Disorders: No Hx Bruising: No Hx Cancer: No Hx Chemotherapy: No Hx Radiation Therapy: No Hx Clotting Problems: No Hx Sickle Cell Disease: No Hx Unexplained Bleeding: No Hx Blood Transfusions: No Hx Blood Transfusion Reaction: No Family Medical History Any Significant Family History?: Yes Hx Anxiety: Brother/Sister Hx Cancer: Father, Brother/Sister *Cancer Comment: sister-leukemia Hx Dementia: Brother/Sister Hx Diabetes: Father Hx Heart Disease: Mother, Children Hx Resp Disorders: Father, Brother/Sister Hx Stroke: Children H&P Meds/Allergies - Allergies Allergies: Allergies Allergy/AdvReac Type Severity Reaction Status Date / Time codeine Allergy Intermediate ABDOMINAL Verified 12/29/16 15:49 PAIN donepezil [From Aricept] Allergy Intermediate ABDOMINAL Verified 02/14/17 09:32 CRAMPS famotidine [From Pepcid] Allergy Intermediate ABDOMINAL Verified 12/29/16 15:49 PAIN meclizine [From Antivert] Allergy Intermediate DIZZINESS Verified 02/14/17 08:29 vancomycin Allergy Intermediate HIVES Verified 02/14/17 10:09 adhesive tape AdvReac Intermediate SKIN Verified 02/14/17 08:29 IRRITATION celecoxib [From Celebrex] AdvReac Intermediate GI bleed Verified 02/14/17 08:30 - Active Medications Active Medications: Current Medications Hydrocodone Bitart/Acetaminophen (Metamora 7.5mg/325mg) 1 each PO Q4H PRN PRN Reason: Pain - General Hydrocodone Bitart/Acetaminophen (Metamora 7.5mg/325mg) 2 each PO Q4H PRN PRN Reason: Pain - General Al Hydroxide/Mg Hydroxide (Maalox) 30 ml PO Q6H PRN PRN Reason: INDIGESTION/HEARTBURN Docusate Sodium (Colace) 100 mg PO BID [facility] Ferrous Sulfate (Iron) 325 mg PO BID [facility] Magnesium Hydroxide (Milk Of Magnesium) 30 ml PO DAILY PRN PRN Reason: CONSTIPATION Patient Own Med: (Namenda Xr 14 Mg) 1 each PO DAILY [facility] Patient Own Med: Theragesic Pain Creme 1 each TOP QID PRN PRN Reason: Pain - General Rivaroxaban (Xarelto) 15 mg PO DAILY [facility] Physical Exam - Vital Signs Vital Signs: Vital Signs - Last 24 Hrs Pulse Ox 02/17/17 18:12 94 L - General General Appearance: Alert, Cooperative, No acute distress - Head Head exam: Atraumatic, Normocephalic - Neck Neck exam: Normal inspection - Respiratory Respiratory exam: Normal lung sounds bilaterally. negative: Accessory muscle use - Cardiovascular Cardiovascular Exam: Regular rate, Normal rhythm - GI/Abdominal GI/Abdominal exam: Soft, Normal bowel sounds - Rectal Rectal exam: Deferred - exam: Deferred - Extremities Extremities exam: Normal inspection, Tenderness (left hip/leg ) - Neurological Neurological exam: Abnormal gait, Alert. negative: Altered, Oriented X3 - Skin Skin exam: Dry, Intact, Normal color, Warm Discharge Potential - Discharge Needs Community Services Used Prior to Admission: Occupational Therapy, Physical Therapy Patient Discharge Plan Description: Return Home Community Services Needed at Discharge: Occupational Therapy, Physical Therapy Plan - Swing Bed Certification Initial Certification Due: 02/17/17 14 Day Re-Cert Due: 03/03/17 44 Day Re-Cert Due: 04/02/17 74 Day Re-Cert Due: 05/02/17 - Detailed Diagnosis and Plan (1) History of arthroplasty Plan: Summary: 81 y/o female with left total hip athroplasty on 02/14. She has since been ambulatory with assistance and progressing with daily PT/OT. - daily PT/OT evaluation and treatment as tolerated. Ambulation with assistance. - continue pain control with Metamora 7.5mg Q4H PRN, docusate 100mg BID, Xarelto 15mg QD - daily wound/dressing checks, f/u with Orthopedics outpatient. Current Visit: Yes Status: Acute Base Code: Z98.890 - OTHER SPECIFIED POSTPROCEDURAL STATES (2) Dementia Plan: - the patient has Alzheimer's dementia and is on Namenda 15mg QD . - requires complete assistance with daily activities. Current Visit: No Status: Chronic Qualifiers: Dementia type: Alzheimer's disease Base Code: F03.90 - UNSPECIFIED DEMENTIA WITHOUT BEHAVIORAL DISTURBANCE - Disposition Will require further assessment over the next 48 hours to determine complete needs and goals of care. Disposition will be updated at that time.
[2017-02-17] MEDS: FERROUS SULFATE 325 MG TAB PO SCH (21:25)
[2017-02-17] MEDS: DOCUSATE SODIUM 100 MG CAPSULE PO SCH (21:26)
[2017-02-17] MEDS: HYDROCODONE/APAP 7.5/325MG TABLET PO PRN (21:28)
[2017-02-18] MEDS: HYDROCODONE/APAP 7.5/325MG TABLET PO PRN ×5 (02:47→21:48)
[2017-02-18] MEDS: FERROUS SULFATE 325 MG TAB PO SCH ×2 (11:29→21:48)
[2017-02-18] MEDS: DOCUSATE SODIUM 100 MG CAPSULE PO SCH ×2 (11:29→21:48)
[2017-02-18] MEDS: RIVAROXABAN 15 MG TABLET PO SCH (11:30)
[2017-02-18] MEDS: NAMENDA 14 MG PO SCH (11:33)
[2017-02-19] MEDS: HYDROCODONE/APAP 7.5/325MG TABLET PO PRN ×4 (04:53→21:23)
[2017-02-19] MEDS: DOCUSATE SODIUM 100 MG CAPSULE PO SCH ×2 (09:11→21:23)
[2017-02-19] MEDS: RIVAROXABAN 15 MG TABLET PO SCH (09:11)
[2017-02-19] MEDS: FERROUS SULFATE 325 MG TAB PO SCH ×2 (09:11→21:23)
[2017-02-19] MEDS: NAMENDA 14 MG PO SCH (09:12)
[2017-02-20] MEDS: HYDROCODONE/APAP 7.5/325MG TABLET PO PRN ×5 (01:37→21:24)
[2017-02-20] MEDS: NAMENDA 14 MG PO SCH (09:28)
[2017-02-20] MEDS: FERROUS SULFATE 325 MG TAB PO SCH ×2 (09:28→21:20)
[2017-02-20] MEDS: DOCUSATE SODIUM 100 MG CAPSULE PO SCH ×2 (09:28→21:20)
[2017-02-20] MEDS: RIVAROXABAN 15 MG TABLET PO SCH (09:28)
--- NOTE | 2017-02-20 12:38 | Rehab Evaluation ---
Patient Information - Patient Information Diagnosis: L RIMA revision Ordered Treatment: OT Evaluate and Treat Status: Initial Evaluation Surgery: Yes (Left RIMA revision) Date of Surgery: 02/14/17 Past Medical/Surgical Hx: PAST MEDICAL/SURGICAL HISTORY Past Surgical History D&C; cholecystectomy; left hip hemiarthroplasty 2004; tubal ligation; total hysterectomy;left and right total knee replacement; wrist sx PMH - Respiratory Hx Respiratory Disorders Yes Hx Asthma Yes Hx Bronchitis Yes Hx Chronic Obstructive Yes Pulmonary Disease (COPD) Hx Dyspnea Yes Hx Pneumonia Yes Hx Sleep Apnea Yes Hx Tuberculosis No: past + ppd Hx of CPAP No Hx of SOB Yes Hx of Oxygen Therapy Yes Comment: hx sinus problems PMH - Cardiovascular Hx Cardiovascular Disorders Yes Hx Abnormal EKG Yes Hx Cardiac Catheterization Yes: x2 Hx Edema Yes: ankles-none today Hx Heart Attack No Hx Hypertension Yes Hx Hypotension Yes Hx Irregular Heartbeat Yes: hx A-fib Hx Coronary Artery Disease Yes Hx of Mitral Valve Prolapse Yes Hx Transient Ischemic Attacks Yes (TIA) Comment: hyperlipidemia PMH - Neuro Hx Neurological Disorders Yes Hx Dementia Yes Hx Dizziness Yes Hx Headaches Yes Hx Neuropathy No Hx Parkinson's Disease No Hx Seizures No Hx Syncope No Hx Transient Ischemic Attacks Yes (TIA) PMH - GI Hx Gastrointestinal Disorders Yes Hx Abdominal Pain Yes Hx Celiac Disease No Hx Crohn's Disease No Hx Diverticulitis No Hx Gastrointestinal Bleed No Hx Gastroesophageal Reflux Yes Hx Hepatitis/Jaundice No Hx Hiatal Hernia Yes Hx Irritable Bowel Yes: constip & loose diarrhea Hx Liver Disease No Hx Nausea/Vomiting Yes Hx Obstructive Bowel No Hx Pancreatitis No Hx Rectal Bleeding Yes: sometimes with hemmorrhoids Hx Ulcer No Hx Weight Loss/Weight Gain No Comment: constipation PMH - Hx Genitourinary Disorders Yes Hx Bladder Problem Yes: wears Depends Hx Dialysis No Hx Kidney Stones No Hx Renal Disease No Hx Urinary Tract Infection No PMH - Endocrine Hx Endocrine Disorders No Hx Diabetes No Hx Thyroid Disease No PMH - Musculoskeletal Hx Musculoskeletal Disorders Yes Hx Arthritis Yes: soteo & rheumatoid Hx Back Injury Yes: broken back Hx Fibromyalgia No Hx Gout No Hx Musculoskeletal Disease No Hx Osteoporosis Yes PMH - Psych Hx Psychiatric Problems Yes Hx Anxiety Yes Hx Behavior Problems No Hx Depression No Hx Emotional Abuse No Hx Sexual Abuse No Hx Suicide Attempt No PMH - Hematology/Oncology Hx Hematology/Oncology No Disorders Hx Anemia Yes Hx Blood Disorders No Hx Bruising No Hx Cancer No Hx Chemotherapy No Hx Radiation Therapy No Hx Clotting Problems No Hx Sickle Cell Disease No Hx Unexplained Bleeding No Hx Blood Transfusion Reaction No Premorbid Status: Detail (The patient lives with granddaughter in a 2 story house with pt living primarily on the 1st floor. She has 3 steps at the entrance without handrails (family assists with climbing the steps). She has a tub/shower combination with a tub seat with grab bars and a standard height toilet with a commode. Prior to surgery the patients granddaughter assisted with dressing and showering activities. The patient was not responsible for home mgmt, meal prep and laundry. She has a wheeled walker, cane and a wheelchair. The patient was ambulatory with assistive device prior to surgery.) Social History: Detail (Supportive family.) Precautions: [place], Fall, Other (WBAT on the L LE and RIMA precautions. The patient has a hip abductor pillow.) - Time With Patient Total Time Spent With Patient (Min): 40 Treatment Procedures: Detail (OT eval low complexity) Subjective Information - Subjective Information Per Patient Objective Data - Pain Pain Present: Yes (Pt reports 10/10 pain with mobility.) - Mental Status Patient Orientation: Person (Pt not oriented to place, month, year. She was oriented to self, birthday and age. She was able to follow all commands and participate in OT eval appropriately.) - Visual Perception Appears within normal limits for therapeutic activities (Pt wears glasses at all times.) - ROM Not within normal limits (Tyree UE AROM WNL with the exception of left shoulder flexion which is limited to approx. 80 degrees due to premorbid arthritis.) - Strength/Tone Not within normal limits (Tyere UE MMT grossly 4+/5 with the exception of left shoulder which is 4-/5 within AROM limitations.) - Coordination Appears within normal limits for therapeutic activities - Bed Mobility Independent (Pt was able to complete supine to sit with use of bed rails Indly.) - Transfers Needs Assist (Sit to stand from EOB with walker and SBA.) - Balance Balance Sitting: Good Balance Standing: Fair - Sensation Intact - Gait Detail (Pt able to amb to bathroom with 2 wheeled walker and CG assist.) - ADL's/IADL's Detail (Pt completed toileted on raised toilet seat with min assist for hygiene and to pull up pants. She was able to complete oral hygiene, wash face and brush hair while standing at sink Indly.) Therapy Assessment - Therapy Assessment Detail (Pt presents with decreased Ind with showering, dressing activities, decreased overall endurance and impaired left shoulder AROM/strength, and impaired/painful functional mobility.) Problem List - Problem List Physical Therapy Problem List: Detail (1) Assistance with bed mobility and transfers 2) Limited ambulation with assistive device 3) Mental status 4) shortness of breath with activity 5) Decreased ability to complete prolonged physical activity) Occupational Therapy Problem List: Detail (1. Decreased Ind with total body dressing 2. Decreased Ind with showering 3. Decreased endurance needed for safe and Ind ADLs and functional mobility 4. Decreased left UE function) Goals - Goals Physical Therapy Goals: 1) The patient will ambulate with assistive device household distances with CG/supervision. 2) The patient will ambulate on stairs with CG/minimal assist of 1. 3) the patient will be independent with sit to and from stand transfer and toilet transfer. 4) The patient will be independent with bed mobility. 5) The patient will be able to complete HEP with supervision of family members. 6) The patient will follow RIMA precautions with supervison and cueing of family members Occupational Therapy Goals: 1. Pt will be Ind with total body dressing with use of adaptive equipment to maintain THR precautions. 2. Pt will be Ind with total body showering in sitting. 3. Pt will demonstrate improved endurance needed for safe and Ind ADLs and functional mobility Prognosis - Prognosis Good Plan - Plan Physical Therapy Plan: PT M-F 1 to 2 times a day for gait training, transfer training, bed mobility and instruction in HEP. Occupational Therapy Plan: OT 2-4 days per week to address self cares, functional mobility, UE function and endurance to allow safe return home with family.
--- NOTE | 2017-02-20 14:13 | Physical Therapy Tx Note ---
Physical Therapy Tx Note - Treatment Note Tolerated: Good Total Time Spent With Patient: 15 Physical Therapy Tx Note: Detail (The patient was in bed when PT arrived. The patient acheived supine to sit independently. The patient was independent with sit to stand transfer. The patient ambulated with wheeled walker a distance of 35 feet x 1 with WBAT on th L LE. The patient had complaints of hip pain 10 with weight bearing. The patient was taken back to room due to X-ray coming for stat X-ray. Patient was left in wheelchair with call light in place.) Physical Therapy Problem List: Detail (1) Assistance with bed mobility and transfers 2) Limited ambulation with assistive device 3) Mental status 4) shortness of breath with activity 5) Decreased ability to complete prolonged physical activity) Physical Therapy Goals: 1) The patient will ambulate with assistive device household distances with CG/supervision. 2) The patient will amulate on stairs with CG/minimal assist of 1. 3) the patient will be independent with sit to and from stand transfer and toilet transfer. 4) The patient will be independent with bed mobility. 5) The patient will be able to complete HEP with supervision of family members. 6) The patient will follow RIMA precautions with supervison and cueing of family members Physical Therapy Plan: PT M-F 1 to 2 times a day for gait training, transfer training, bed mobility and instruction in HEP.
[2017-02-21] MEDS: HYDROCODONE/APAP 7.5/325MG TABLET PO PRN ×5 (01:46→23:34)
--- NOTE | 2017-02-21 08:09 | RADIOLOGY REPORT ---
EXAM: LEFT HIP HISTORY: PAIN. TECHNIQUE: A single view of the left hip was obtained. Comparison: 02/14/17. FINDINGS: The patient is status post left hip arthroplasty. There is heterotopic bone formation on the lateral aspect. This appears similar in appearance when compared to the postoperative x-ray. No evidence of acute fracture or dislocation. IMPRESSION: LEFT HIP ARTHROPLASTY SURGICAL CHANGE. NO CHANGE WHEN COMPARED TO THE POSTOPERATIVE EXAM DATED 02/14/17. JOB NUMBER: [id number] MTDD
[2017-02-21] MEDS ORDERED: ALBUTEROL SULFATE (0.083%) 2.5 MG/3 ML NEB INH PRN (08:52)
[2017-02-21] MEDS ORDERED: FUROSEMIDE 20 MG TABLET PO ONE (08:53)
--- NOTE | 2017-02-21 09:36 | Swing Bed Certification/Recert ---
Initial Certification Due: 02/17/17 14 Day Re-Cert Due: 03/03/17 44 Day Re-Cert Due: 04/02/17 74 Day Re-Cert Due: 05/02/17 CERTIFICATION 3 CERTIFICATION OF PATIENT ADMISSION Required at time of admission. Due: 02/17/17 I certify that SNF services are required to be given on an inpatient basis because of the above named patient's need for prison care on a continuing basis for the condition(s) for which he/she was receiving inpatient hospital services prior to his/her transfer to the SNF. The patient's current needs for skilled care includes: [s/p total left hip replacement, generalized weakness] Amarilys Moraes 02/21/17
[2017-02-21] MEDS: DOCUSATE SODIUM 100 MG CAPSULE PO SCH ×2 (11:25→22:23)
[2017-02-21] MEDS: RIVAROXABAN 15 MG TABLET PO SCH (11:25)
[2017-02-21] MEDS: FERROUS SULFATE 325 MG TAB PO SCH ×2 (11:25→22:23)
[2017-02-21] MEDS: NAMENDA 14 MG PO SCH (11:44)
--- NOTE | 2017-02-21 12:13 | RADIOLOGY REPORT ---
EXAM: PORTABLE CHEST HISTORY: DIFFICULTY IN BREATHING. TECHNIQUE: A single AP view of the chest was performed. FINDINGS: There is cardiomegaly, mild congestion, and probable small pleural effusions. IMPRESSION: CARDIOMEGALY WITH MILD CONGESTION. THERE ARE PROBABLY SMALL PLEURAL EFFUSIONS. JOB NUMBER: [id number] MTDD
--- NOTE | 2017-02-21 12:49 | Occupational Therapy Tx Note ---
Occupational Therapy Tx Note - Treatment Note Tolerated: Good Total Time Spent With Patient: 45 (ADL) Occupational Therapy Treatment Note: Detail (S: Pt ready for showering. Grand daughter present. O: Sit to stand from chair with walker and SBA. Pt amb to commode and completed toileting Indly. Doffed PJ bottoms, briefs and slippers with litigation associate and verbal cues for modified dressing technique. Grand daughter assisted pt with doffing shirt. Pt amb to shower and completed showering in sitting. Grand daughter completed washing of patients hair, back and lower legs. Pt able to wash arms, chest and face. Grand daughter reports she assists pt with showering at home. Pt dried self with assist for back, legs. Donned shirt Indly, donned briefs and PJ bottoms with litigation associate and verbal cues. Donned slippers with sock aid and verbal cues. Pt Ind with sit to stand although she reports increased hip pain. A: Grand daughter assisted with showering, dressing. She and pt feel this is appropriate and this level of assistance will be provided at home as well and she is not interested in adaptive equipment at this time.) Occupational Therapy Problem List: Detail (1. Decreased Ind with total body dressing 2. Decreased Ind with showering 3. Decreased endurance needed for safe and Ind ADLs and functional mobility 4. Decreased left UE function) Occupational Therapy Goals: 1. Pt will be Ind with total body dressing with use of adaptive equipment to maintain THR precautions. 2. Pt will be Ind with total body showering in sitting. 3. Pt will demonstrate improved endurance needed for safe and Ind ADLs and functional mobility Prognosis: Good Occupational Therapy Plan: OT 2-4 days per week to address self cares, functional mobility, UE function and endurance to allow safe return home with family.
--- NOTE | 2017-02-21 14:36 | Physical Therapy Tx Note ---
Physical Therapy Tx Note - Treatment Note Tolerated: Poor Total Time Spent With Patient: 15 Physical Therapy Tx Note: Detail (The patient was in bathroom when PT arrived. RN stated that the patient was very painful this afternoon. The patient achieved sit to stand from toilet independently and ambulated with wheeled walker a distance of 11 feet x 1. The patient had difficulty weight bearing on L LE and moaned in pain. The patient complained of bilateral shoulder pain and L hip pain. The patient required moderate PA with supine to sit and attempted to cross legs due to L hip pain complaints. The patient was scooted up into bed with maximal PA of 2 ( assist of RN). Hip abductor pillow was in place and ice placed on hip . RN contact physician re: change in pain medications.) Physical Therapy Problem List: Detail (1) Assistance with bed mobility and transfers 2) Limited ambulation with assistive device 3) Mental status 4) shortness of breath with activity 5) Decreased ability to complete prolonged physical activity) Physical Therapy Goals: 1) The patient will ambulate with assistive device household distances with CG/supervision. 2) The patient will ambulate on stairs with CG/minimal assist of 1. 3) the patient will be independent with sit to and from stand transfer and toilet transfer. 4) The patient will be independent with bed mobility. 5) The patient will be able to complete HEP with supervision of family members. 6) The patient will follow RIMA precautions with supervison and cueing of family members Physical Therapy Plan: PT M-F 1 to 2 times a day for gait training, transfer training, bed mobility and instruction in HEP.
[2017-02-21] MEDS: MORPHINE SULFATE 15 MG TABLET.ER PO SCH ×2 (15:10→18:01)
[2017-02-22] MEDS: HYDROCODONE/APAP 7.5/325MG TABLET PO PRN ×2 (07:53→15:56)
--- NOTE | 2017-02-22 10:53 | Physical Therapy Tx Note ---
Physical Therapy Tx Note - Treatment Note Tolerated: Good Total Time Spent With Patient: 30 Physical Therapy Tx Note: Detail (The patient was up in chair when PT arrived. The patient ambulated 13 feet to the bathroom with wheeled walker with supervision for safety. The patient was taken to the rehab and ambulated on 3 steps with 2 railings with CG of 1 and verbal cues for proper technique. The patient ambulated with wheeled walker 26 feet x 2 with supervision for safety and WBAT on the L LE. The patient completed LE strengthening exercises including : gluteal sets, quad sets, ankle pumps and adductor squeezes all x 10 reps. The patient was returned to room and left in recliner with call light in reach. The patient had less complaints of pain this am.) Physical Therapy Problem List: Detail (1) Assistance with bed mobility and transfers 2) Limited ambulation with assistive device 3) Mental status 4) shortness of breath with activity 5) Decreased ability to complete prolonged physical activity) Physical Therapy Goals: 1) The patient will ambulate with assistive device household distances with CG/supervision. 2) The patient will ambulate on stairs with CG/minimal assist of 1. 3) the patient will be independent with sit to and from stand transfer and toilet transfer. 4) The patient will be independent with bed mobility. 5) The patient will be able to complete HEP with supervision of family members. 6) The patient will follow RIMA precautions with supervison and cueing of family members Physical Therapy Plan: PT M-F 1 to 2 times a day for gait training, transfer training, bed mobility and instruction in HEP.
[2017-02-22] MEDS: DOCUSATE SODIUM 100 MG CAPSULE PO SCH ×2 (10:59→21:06)
[2017-02-22] MEDS: MORPHINE SULFATE 15 MG TABLET.ER PO SCH ×2 (10:59→21:05)
[2017-02-22] MEDS: FERROUS SULFATE 325 MG TAB PO SCH ×2 (10:59→21:06)
[2017-02-22] MEDS: RIVAROXABAN 15 MG TABLET PO SCH (10:59)
[2017-02-22] MEDS: NAMENDA 14 MG PO SCH (11:00)
--- NOTE | 2017-02-22 14:30 | Physical Therapy Tx Note ---
Physical Therapy Tx Note - Treatment Note Tolerated: Good Total Time Spent With Patient: 25 Physical Therapy Tx Note: Detail (Patient was reclined in bed when [employer] ENR[employer]MENT DIRECTOR arrived. Patient states left hip and shoulders are painful this afternoon. Patient transferred supine reclined to sit CGA x1 to guard left LE. Patient transferred sit to and from stand CGA/min assist x1. Patient ambulated 32 feet with wheeled walker CGA x1. Patient transferred sit to supine CGA x1 to guard left LE. Patient performed the following exercises x10 reps each: ankle pumps, supine hip abduction, glut squeezes, quad sets, and heel slides. Patient scooted up in bed independently. Patient declined further exercises due to pain. Patient was left reclined in bed with call light within reach.) Physical Therapy Problem List: Detail (1) Assistance with bed mobility and transfers 2) Limited ambulation with assistive device 3) Mental status 4) shortness of breath with activity 5) Decreased ability to complete prolonged physical activity) Physical Therapy Goals: 1) The patient will ambulate with assistive device household distances with CG/supervision. 2) The patient will ambulate on stairs with CG/minimal assist of 1. 3) the patient will be independent with sit to and from stand transfer and toilet transfer. 4) The patient will be independent with bed mobility. 5) The patient will be able to complete HEP with supervision of family members. 6) The patient will follow RIMA precautions with supervison and cueing of family members Prognosis: Good Physical Therapy Plan: PT M-F 1 to 2 times a day for gait training, transfer training, bed mobility and instruction in HEP.
[2017-02-23] MEDS: HYDROCODONE/APAP 7.5/325MG TABLET PO PRN ×3 (05:50→17:17)
--- NOTE | 2017-02-23 11:13 | Physical Therapy Tx Note ---
Physical Therapy Tx Note - Treatment Note Tolerated: Good (Pt. requested break after ~40 feet due to exhaustion. Pt. could not accurately report pain ratings.) Total Time Spent With Patient: 45 Physical Therapy Tx Note: Detail (Pt. ambulated with front wheeled walker and CGA for 20 feet before request to be positioned back in bed. Pt. performed the following bed exercises while supine: ankle pumps x20, quad sets x10, glut sets x10. PT performed PROM for the left hip that consisted of: flexion to tolerance without exceeding precations 40x, abduction to tolerance x40, ER x40 to tolerance. Pt. continues to require verbal and tactile cues to appropriately position operative LE to not break precautions with bed mobility. Pt. was left supine with call light available, CRYO L hip, and nursing was notified of pt.'s status.) Physical Therapy Problem List: Detail (1) Assistance with bed mobility and transfers 2) Limited ambulation with assistive device 3) Mental status 4) shortness of breath with activity 5) Decreased ability to complete prolonged physical activity) Physical Therapy Goals: 1) The patient will ambulate with assistive device household distances with CG/supervision. 2) The patient will ambulate on stairs with CG/minimal assist of 1. 3) the patient will be independent with sit to and from stand transfer and toilet transfer. 4) The patient will be independent with bed mobility. 5) The patient will be able to complete HEP with supervision of family members. 6) The patient will follow RIMA precautions with supervison and cueing of family members Prognosis: Good Physical Therapy Plan: PT M-F 1 to 2 times a day for gait training, transfer training, bed mobility and instruction in HEP.
[2017-02-23] MEDS: DOCUSATE SODIUM 100 MG CAPSULE PO SCH ×2 (11:19→22:55)
[2017-02-23] MEDS: MORPHINE SULFATE 15 MG TABLET.ER PO SCH ×3 (11:20→22:55)
[2017-02-23] MEDS: NAMENDA 14 MG PO SCH (11:20)
[2017-02-23] MEDS: RIVAROXABAN 15 MG TABLET PO SCH (11:20)
[2017-02-23] MEDS: FERROUS SULFATE 325 MG TAB PO SCH ×2 (11:50→22:54)
--- NOTE | 2017-02-23 15:00 | Physical Therapy Tx Note ---
Physical Therapy Tx Note - Treatment Note Tolerated: Good Total Time Spent With Patient: 45 Physical Therapy Tx Note: Detail (Pt. ambulated with front wheeled walker with CGA for ~50 feet. Pt. performed bed mobility with mod assist x2 due to increased hip pain. PT instructed pt. to perform car transfer on plinth and pt. required tacticle cues for neutral lumbar positioning and avoidance of breaking hip precautions. Pt. continues to exhibit poor safety awareness and excessive forward flexion with sit to stand transfer. Pt. performed seated knee extension and flexion with yellow band 10x each, bilateral hip abduction with yellow band 10x. Pt. declined stair training due to feeling dizzy and increased pain. Pt. was left supine with call light available, nursing was notified of pt.'s status. ) Physical Therapy Problem List: Detail (1) Assistance with bed mobility and transfers 2) Limited ambulation with assistive device 3) Mental status 4) shortness of breath with activity 5) Decreased ability to complete prolonged physical activity) Physical Therapy Goals: 1) The patient will ambulate with assistive device household distances with CG/supervision. 2) The patient will ambulate on stairs with CG/minimal assist of 1. 3) the patient will be independent with sit to and from stand transfer and toilet transfer. 4) The patient will be independent with bed mobility. 5) The patient will be able to complete HEP with supervision of family members. 6) The patient will follow RIMA precautions with supervison and cueing of family members Prognosis: Good Physical Therapy Plan: PT M-F 1 to 2 times a day for gait training, transfer training, bed mobility and instruction in HEP.
[2017-02-24] MEDS: HYDROCODONE/APAP 7.5/325MG TABLET PO PRN ×2 (07:23→13:39)
[2017-02-24] MEDS: RIVAROXABAN 15 MG TABLET PO SCH (09:27)
[2017-02-24] MEDS: MORPHINE SULFATE 15 MG TABLET.ER PO SCH ×2 (09:27→22:36)
[2017-02-24] MEDS: FERROUS SULFATE 325 MG TAB PO SCH ×2 (09:27→22:36)
[2017-02-24] MEDS: DOCUSATE SODIUM 100 MG CAPSULE PO SCH ×2 (09:29→22:36)
--- NOTE | 2017-02-24 11:54 | Physical Therapy Tx Note ---
Physical Therapy Tx Note - Treatment Note Tolerated: Good Total Time Spent With Patient: 30 Physical Therapy Tx Note: Detail (The patient was up in chair when PT arrived. The patient ambulated with wheeled walker a distance of 13 feet x 3 WBAT on the L LE. The patient completed LE strengthening exercises including : gluteal sets , hip adductor squeezes, yellow T-band hip abduction, LAQ, hamsting curls with yellow T band, ankle pumps all x 10 reps.) Physical Therapy Problem List: Detail (1) Assistance with bed mobility and transfers 2) Limited ambulation with assistive device 3) Mental status 4) shortness of breath with activity 5) Decreased ability to complete prolonged physical activity) Physical Therapy Goals: 1) The patient will ambulate with assistive device household distances with CG/supervision. 2) The patient will ambulate on stairs with CG/minimal assist of 1. 3) the patient will be independent with sit to and from stand transfer and toilet transfer. 4) The patient will be independent with bed mobility. 5) The patient will be able to complete HEP with supervision of family members. 6) The patient will follow RIMA precautions with supervison and cueing of family members Physical Therapy Plan: PT M-F 1 to 2 times a day for gait training, transfer training, bed mobility and instruction in HEP.
[2017-02-24] MEDS: NAMENDA 14 MG PO SCH (13:39)
--- NOTE | 2017-02-24 15:17 | Physical Therapy Tx Note ---
Physical Therapy Tx Note - Treatment Note Tolerated: Fair Total Time Spent With Patient: 20 (The patient's treatment was limited due to pain complaints.) Physical Therapy Tx Note: Detail (The patient was up in chair when PT arrived and asked to go to the bathroom. The patient ambulated to and from bathroom 13 feet x2 with wheeled walker WBAT on the L LE with CG for safety. The patient ambulated with slow gait pattern and moaned in pain with weight bearing. The patient declined further activity due to pain complaints.) Physical Therapy Problem List: Detail (1) Assistance with bed mobility and transfers 2) Limited ambulation with assistive device 3) Mental status 4) shortness of breath with activity 5) Decreased ability to complete prolonged physical activity) Physical Therapy Goals: 1) The patient will ambulate with assistive device household distances with CG/supervision. 2) The patient will ambulate on stairs with CG/minimal assist of 1. 3) the patient will be independent with sit to and from stand transfer and toilet transfer. 4) The patient will be independent with bed mobility. 5) The patient will be able to complete HEP with supervision of family members. 6) The patient will follow RIMA precautions with supervison and cueing of family members Physical Therapy Plan: PT M-F 1 to 2 times a day for gait training, transfer training, bed mobility and instruction in HEP.
[2017-02-25] MEDS: HYDROCODONE/APAP 7.5/325MG TABLET PO PRN ×2 (00:01→16:04)
[2017-02-25 10:17] LABS: HEMATOCRIT 28.1 % (35.0-47.0); HEMOGLOBIN 8.6 gm/dl (11.6-16.0); MEAN CELL VOLUME 97.9 fl (81-97); MEAN CORPUSCULAR HGB CONC 30.6 g/dl (32-36); MEAN PLATELET VOLUME 8.2 fl (7.4-10.4); PLATELET COUNT 412 K/uL (130-400); RED BLOOD COUNT 2.87 M/uL (3.80-5.40); RED CELL DISTRIBUTION WIDTH 15.3 % (11.5-14.5); WHITE BLOOD COUNT W/O DIFF 7.5 K/uL (4.2-12.2)
[2017-02-25 10:30] LABS: MEAN CORPUSCULAR HEMOGLOBIN 29.9 pg (27-33)
[2017-02-25 10:41] LABS: ALBUMIN 2.9 g/dL (4.0-5.0); ALKALINE PHOSPHATASE 62 U/L (35-104); ALT/SGPT 13 U/L (<33); AST/SGOT 14 U/L (10.0-35.0); BLOOD UREA NITROGEN 15 mg/dL (8-23); CREATININE 0.5 mg/dL (0.5-0.9); EST GLOMERULAR FILTRATION RATE > 60 mL/min; GLUCOSE,RANDOM 111 mg/dL (74-109); TOTAL PROTEIN 5.9 g/dL (6.6-8.7)
[2017-02-25 10:44] LABS: HYPOCHROMIA 2+; PLATELET ESTIMATE NORMAL (NORMAL)
[2017-02-25] MEDS: RIVAROXABAN 15 MG TABLET PO SCH (10:55)
[2017-02-25] MEDS: MORPHINE SULFATE 15 MG TABLET.ER PO SCH ×2 (10:55→23:21)
[2017-02-25] MEDS: NAMENDA 14 MG PO SCH (10:55)
[2017-02-25] MEDS: DOCUSATE SODIUM 100 MG CAPSULE PO SCH ×2 (10:55→23:21)
[2017-02-25] MEDS: FERROUS SULFATE 325 MG TAB PO SCH ×2 (10:55→23:21)
[2017-02-25] MEDS ORDERED: FUROSEMIDE 20 MG TABLET PO ONE (14:31)
[2017-02-25] MEDS ORDERED: HYDROCORTISONE RC ONE (14:32)
[2017-02-26] MEDS: HYDROCODONE/APAP 7.5/325MG TABLET PO PRN ×3 (02:52→17:40)
[2017-02-26] MEDS: MORPHINE SULFATE 15 MG TABLET.ER PO SCH ×2 (10:01→22:51)
[2017-02-26] MEDS: POTASSIUM CHLORIDE 10 MEQ TAB PO SCH (10:01)
[2017-02-26] MEDS: DOCUSATE SODIUM 100 MG CAPSULE PO SCH ×2 (10:01→22:51)
[2017-02-26] MEDS: RIVAROXABAN 15 MG TABLET PO SCH (10:01)
[2017-02-26] MEDS: FERROUS SULFATE 325 MG TAB PO SCH ×2 (10:01→22:51)
[2017-02-26] MEDS: FUROSEMIDE 20 MG TABLET PO SCH (10:01)
[2017-02-26] MEDS: NAMENDA 14 MG PO SCH (10:03)
--- NOTE | 2017-02-26 11:30 | Physician Progress Note ---
Subjective - Date Date of Progress Note: 02/26/17 - Admitting Diagnosis Diagnosis: left total hip replacement - Subjective Nursing Care Plan Problem List Activity Intolerance (Swing Bed) Start: 02/17/17 14: 31 Freq: Status: Active Created 02/17/17 14:32 MMT (Rec: 02/17/17 14:32 MMT [id number]) Knowledge Deficit (Swing Bed) Start: 02/17/17 14: 31 Freq: Status: Active Created 02/17/17 14:32 MMT (Rec: 02/17/17 14:32 MMT [id number]) Pain (Swing Bed) Start: 02/17/17 14: 31 Freq: Status: Active Created 02/17/17 14:32 MMT (Rec: 02/17/17 14:32 MMT [id number]) Risk For Falls (Swing Bed) Start: 02/17/17 14: 31 Freq: Status: Complete Created 02/17/17 14:32 MMT (Rec: 02/17/17 14:32 MMT [id number]) Edit Status 02/21/17 16:06 SAF (Rec: 02/21/17 16:06 SAF [id number]) Active=>Complete Skin Integrity, Impaired (Swing Bed) Start: 02/17/17 14: 31 Freq: Status: Active Created 02/17/17 14:32 MMT (Rec: 02/17/17 14:32 MMT [id number]) General - Cognitive Patterns Speech: Loud Thought Process: Intact Thought Content: Normal - Communication Ability to express ideas and wants: Understood Understanding verbal content: Usually Understands - Mood and Behavior Patterns Appearance: Well Groomed Mood: Normal Attitude: Cooperative Motor Activity: Calm Affect: Appropriate Hallucinations: Denies - Physical Functioning Activity Level: Up with assist x1 Turning: With partial assist ROM Ability: Within Normal Limits Assistive Devices: 2 Wheel Walker Ambulation Ability: Needs Assist Bed Mobility: Needs Assist Transfer Ability: Needs Assist Bathing Ability: Needs Assist Personal Hygiene: Needs Assist Dressing Ability: Needs Assist Eating (Feeding) Ability: Independent Toileting Ability: Needs Assist Administer Own Medication: Independent - Continence Bowel Pattern: Normal for Patient Bladder Pattern: Normal Meds/Allergies - Allergies Allergies Allergy/AdvReac Type Severity Reaction Status Date / Time codeine Allergy Intermediate ABDOMINAL Verified 12/29/16 15:49 PAIN donepezil [From Aricept] Allergy Intermediate ABDOMINAL Verified 02/14/17 09:32 CRAMPS famotidine [From Pepcid] Allergy Intermediate ABDOMINAL Verified 12/29/16 15:49 PAIN meclizine [From Antivert] Allergy Intermediate DIZZINESS Verified 02/14/17 08:29 vancomycin Allergy Intermediate HIVES Verified 02/14/17 10:09 adhesive tape AdvReac Intermediate SKIN Verified 02/14/17 08:29 IRRITATION celecoxib [From Celebrex] AdvReac Intermediate GI bleed Verified 02/14/17 08:30 - Active Medications Current Medications Hydrocodone Bitart/Acetaminophen ([place] 7.5mg/325mg) 1 each PO Q6H PRN PRN Reason: Pain - General Last Admin: 02/26/17 02:52 Dose: 1 each Al Hydroxide/Mg Hydroxide (Maalox) 30 ml PO Q6H PRN PRN Reason: INDIGESTION/HEARTBURN Albuterol Sulfate () 2.5 mg INH RESP.Q4H.WA PRN PRN Reason: COUGH Last Admin: 02/21/17 11:47 Dose: 2.5 mg Docusate Sodium (Colace) 100 mg PO BID [facility] Last Admin: 02/26/17 10:01 Dose: 100 mg Ferrous Sulfate (Iron) 325 mg PO BID [facility] Last Admin: 02/26/17 10:01 Dose: 325 mg Furosemide (Lasix) 20 mg PO DAILY [facility] Last Admin: 02/26/17 10:01 Dose: 20 mg Magnesium Hydroxide (Milk Of Magnesium) 30 ml PO DAILY PRN PRN Reason: CONSTIPATION Last Admin: 02/18/17 11:30 Dose: 30 ml Morphine Sulfate (Ms Contin) 15 mg PO BID [facility] Last Admin: 02/26/17 10:01 Dose: 15 mg Patient Own Med: (Namenda Xr 14 Mg) 1 each PO DAILY [facility] Last Admin: 02/26/17 10:03 Dose: 1 each Patient Own Med: Theragesic Pain Creme 1 each TOP QID PRN PRN Reason: Pain - General Potassium Chloride (Klor-Con) 10 meq PO DAILY [facility] Last Admin: 02/26/17 10:01 Dose: 10 meq Rivaroxaban (Xarelto) 15 mg PO DAILY [facility] Last Admin: 02/26/17 10:01 Dose: 15 mg Objective - Vital Signs Vital Signs: Vital Signs - Last 24 Hrs Temp Pulse Resp BP Pulse Ox 02/26/17 08:23 97.8 F 70 18 143/90 100 - General General Appearance: Alert, Cooperative, No acute distress - Respiratory Respiratory exam: Rales (crackles b/l). negative: Accessory muscle use - Cardiovascular Cardiovascular Exam: Regular rate, Normal rhythm, Normal heart sounds - Extremities Extremities exam: Normal capillary refill, Pedal edema (LLE 1+). negative: Calf tenderness, Tenderness H&P Results - Labs Result Diagrams: 02/25/17 10:05 02/25/17 10:05 Discharge Potential - Discharge Needs Community Services Used Prior to Admission: Occupational Therapy, Physical Therapy Patient Discharge Plan Description: Return Home Community Services Needed at Discharge: Occupational Therapy, Physical Therapy Plan - Swing Bed Certification Initial Certification Due: 02/17/17 14 Day Re-Cert Due: 03/03/17 44 Day Re-Cert Due: 04/02/17 74 Day Re-Cert Due: 05/02/17 - Detailed Diagnosis and Plan (1) Bibasilar crackles Current Visit: Yes Status: Acute Base Code: R09.89 - OTH SYMPTOMS AND SIGNS INVOLVING THE CIRC AND RESP SYSTEMS Comment: 02/26/17- evaluated patient due to nursing and family concerns of cough and crackles in bilateral bases. -repeat CXR -patient was previously on lasix 20mg po daily with potassium 20meq po daily prior to admission. Will resume home medications -2000cc fluid restriction -daily weights -repeat CXR (2) Swelling of lower extremity Current Visit: Yes Status: Acute Base Code: M79.89 - OTHER SPECIFIED SOFT TISSUE DISORDERS Comment: 02/26/17- Noted pedal edema of the left lower extremity. no associated pain. normal cap refill and pulses 2+. post-operative vs fluid overload vs dvt? -elevate legs and add compression hose -restarted lasix and is on fluid restriction, daily weights -currently on xarelto. Will obtain doppler tomorrow if no improvement following diuresis
[2017-02-27] MEDS: HYDROCODONE/APAP 7.5/325MG TABLET PO PRN ×2 (05:36→17:23)
--- NOTE | 2017-02-27 07:17 | RADIOLOGY REPORT ---
EXAM: CHEST, TWO VIEWS HISTORY: DIFFICULTY BREATHING FOR THE PAST TWO DAYS. TECHNIQUE: PA and lateral upright views of the chest were obtained. Comparison: 02/21/17 and 08/28/14. FINDINGS: The heart is upper normal in size. A small hiatal hernia is present. There is calcification of the aorta. The mediastinum and pulmonary vasculature are normal. Mild interstitial infiltrates are again noted within both lungs and appear similar to the previous examination. The bilateral pleural effusions have nearly resolved. There are no new abnormalities. The bones appear intact. IMPRESSION: 1. 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 2. RESOLVING SMALL BILATERAL PLEURAL EFFUSIONS. 3. SMALL HIATAL HERNIA. JOB NUMBER: [id number] [facility]
[2017-02-27] MEDS: POTASSIUM CHLORIDE 10 MEQ TAB PO SCH (11:09)
[2017-02-27] MEDS: FUROSEMIDE 20 MG TABLET PO SCH (11:09)
[2017-02-27] MEDS: MORPHINE SULFATE 15 MG TABLET.ER PO SCH ×2 (11:09→21:53)
[2017-02-27] MEDS: FERROUS SULFATE 325 MG TAB PO SCH ×2 (11:10→21:53)
[2017-02-27] MEDS: NAMENDA 14 MG PO SCH (11:10)
[2017-02-27] MEDS: RIVAROXABAN 15 MG TABLET PO SCH (11:10)
[2017-02-27] MEDS: DOCUSATE SODIUM 100 MG CAPSULE PO SCH ×2 (11:10→21:53)
--- NOTE | 2017-02-27 13:59 | Physical Therapy Tx Note ---
Physical Therapy Tx Note - Treatment Note Total Time Spent With Patient: 35 Physical Therapy Tx Note: Detail (Pt. states she is feeling a little dizzy today , and was complaining of L shoulder pain. Pt. ambulated 16 ft. with standard walker with CGA. Pt. completes 2x 10 quad sets, 1 x 10 glute sets, ankle pumps and 1x 10 ADD ball squeezes with 2 second holds, and 1x5 unilateral (R) hip ABD. Pt. completed stairs ascending 2 steps and descending 3 steps with the use of railings on each side with CGA x2. Pt. exhibits increased L ABD weakness when trying to complete hip ABD exercise. Pt. still requires verbal cueing for hip precautions to not sit with her hip internally rotated.) Physical Therapy Problem List: Detail (1) Assistance with bed mobility and transfers 2) Limited ambulation with assistive device 3) Mental status 4) shortness of breath with activity 5) Decreased ability to complete prolonged physical activity) Physical Therapy Goals: 1) The patient will ambulate with assistive device household distances with CG/supervision. 2) The patient will ambulate on stairs with CG/minimal assist of 1. 3) the patient will be independent with sit to and from stand transfer and toilet transfer. 4) The patient will be independent with bed mobility. 5) The patient will be able to complete HEP with supervision of family members. 6) The patient will follow RIMA precautions with supervison and cueing of family members Physical Therapy Plan: PT M-F 1 to 2 times a day for gait training, transfer training, bed mobility and instruction in HEP.
--- NOTE | 2017-02-27 14:46 | Physical Therapy Tx Note ---
Physical Therapy Tx Note - Treatment Note Tolerated: Good Total Time Spent With Patient: 35 Physical Therapy Tx Note: Detail (Pt was sitting up in chair upon arrival. Pt states feeling tired this afternoon. Pt also states still feeling a bit dizzy. "I'm a dizzy old broad". Pt states feeling very fatigued this afternoon but willing to do "a few things". Pt completed ther ex of LAQ, ankle pumps, hip adduction with pillow, hip marching, hip abduction, all x 15 each bilateral. Pt ambulated x 50 ft. with front wheeled walker with contact guard assist and frequent verbal cues for breathing. Pt returned to bed and completed all bed mobility independently but slowly and with complaint of hip pain throughout treatment. Pt states "it always hurts." Pt was given call button and bedside table. Pt states pain did not increase with activity.) Physical Therapy Problem List: Detail (1) Assistance with bed mobility and transfers 2) Limited ambulation with assistive device 3) Mental status 4) shortness of breath with activity 5) Decreased ability to complete prolonged physical activity) Physical Therapy Goals: 1) The patient will ambulate with assistive device household distances with CG/supervision. 2) The patient will ambulate on stairs with CG/minimal assist of 1. 3) the patient will be independent with sit to and from stand transfer and toilet transfer. 4) The patient will be independent with bed mobility. 5) The patient will be able to complete HEP with supervision of family members. 6) The patient will follow RIMA precautions with supervison and cueing of family members Prognosis: Good Physical Therapy Plan: PT M-F 1 to 2 times a day for gait training, transfer training, bed mobility and instruction in HEP.
--- NOTE | 2017-02-27 21:18 | Physician Progress Note ---
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 - Subjective Nursing Care Plan Problem List Activity Intolerance (Swing Bed) Start: 02/17/17 14: 31 Freq: Status: Active Created 02/17/17 14:32 MMT (Rec: 02/17/17 14:32 MMT [id number]) Knowledge Deficit (Swing Bed) Start: 02/17/17 14: 31 Freq: Status: Active Created 02/17/17 14:32 MMT (Rec: 02/17/17 14:32 MMT [id number]) Pain (Swing Bed) Start: 02/17/17 14: 31 Freq: Status: Active Created 02/17/17 14:32 MMT (Rec: 02/17/17 14:32 MMT [id number]) Risk For Falls (Swing Bed) Start: 02/17/17 14: 31 Freq: Status: Complete Created 02/17/17 14:32 MMT (Rec: 02/17/17 14:32 MMT [id number]) Edit Status 02/21/17 16:06 SAF (Rec: 02/21/17 16:06 SAF [id number]) Active=>Complete Skin Integrity, Impaired (Swing Bed) Start: 02/17/17 14: 31 Freq: Status: Active Created 02/17/17 14:32 MMT (Rec: 02/17/17 14:32 MMT [id number]) Subjective: 02/27/17- patient states her pain is well controlled this morning. she did have a norco 7.5mg this morning for shoulder and hip pain. She denies shortness of breath and that her cough has improved slightly. She also feels like the swelling in her left foot has improved. General - Cognitive Patterns Speech: Loud Thought Process: Intact Thought Content: Normal - Communication Ability to express ideas and wants: Understood Understanding verbal content: Usually Understands - Mood and Behavior Patterns Appearance: Well Groomed Mood: Normal Attitude: Cooperative Motor Activity: Calm Affect: Appropriate Hallucinations: Denies - Physical Functioning Activity Level: Up with assist x1 Turning: With partial assist ROM Ability: Within Normal Limits Assistive Devices: 2 Wheel Walker Ambulation Ability: Needs Assist Bed Mobility: Needs Assist Transfer Ability: Needs Assist Bathing Ability: Needs Assist Personal Hygiene: Needs Assist Dressing Ability: Needs Assist Eating (Feeding) Ability: Independent Toileting Ability: Needs Assist Administer Own Medication: Independent - Continence Bowel Pattern: Normal for Patient Bladder Pattern: Normal Meds/Allergies - Allergies Allergies Allergy/AdvReac Type Severity Reaction Status Date / Time codeine Allergy Intermediate ABDOMINAL Verified 12/29/16 15:49 PAIN donepezil [From Aricept] Allergy Intermediate ABDOMINAL Verified 02/14/17 09:32 CRAMPS famotidine [From Pepcid] Allergy Intermediate ABDOMINAL Verified 12/29/16 15:49 PAIN meclizine [From Antivert] Allergy Intermediate DIZZINESS Verified 02/14/17 08:29 vancomycin Allergy Intermediate HIVES Verified 02/14/17 10:09 adhesive tape AdvReac Intermediate SKIN Verified 02/14/17 08:29 IRRITATION celecoxib [From Celebrex] AdvReac Intermediate GI bleed Verified 02/14/17 08:30 - Active Medications Current Medications Hydrocodone Bitart/Acetaminophen ([place] 7.5mg/325mg) 1 each PO Q6H PRN PRN Reason: Pain - General Last Admin: 02/27/17 17:23 Dose: 1 each Al Hydroxide/Mg Hydroxide (Maalox) 30 ml PO Q6H PRN PRN Reason: INDIGESTION/HEARTBURN Albuterol Sulfate () 2.5 mg INH RESP.Q4H.WA PRN PRN Reason: COUGH Last Admin: 02/21/17 11:47 Dose: 2.5 mg Docusate Sodium (Colace) 100 mg PO BID [facility] Last Admin: 02/27/17 11:10 Dose: 100 mg Ferrous Sulfate (Iron) 325 mg PO BID [facility] Last Admin: 02/27/17 11:10 Dose: 325 mg Furosemide (Lasix) 20 mg PO DAILY [facility] Last Admin: 02/27/17 11:09 Dose: 20 mg Magnesium Hydroxide (Milk Of Magnesium) 30 ml PO DAILY PRN PRN Reason: CONSTIPATION Last Admin: 02/18/17 11:30 Dose: 30 ml Morphine Sulfate (Ms Contin) 15 mg PO BID [facility] Last Admin: 02/27/17 11:09 Dose: 15 mg Patient Own Med: (Namenda Xr 14 Mg) 1 each PO DAILY [facility] Last Admin: 02/27/17 11:10 Dose: 1 each Patient Own Med: Theragesic Pain Creme 1 each TOP QID PRN PRN Reason: Pain - General Potassium Chloride (Klor-Con) 10 meq PO DAILY [facility] Last Admin: 02/27/17 11:09 Dose: 10 meq Rivaroxaban (Xarelto) 15 mg PO DAILY [facility] Last Admin: 02/27/17 11:10 Dose: 15 mg Objective - Vital Signs Vital Signs: Vital Signs - Last 24 Hrs Temp Pulse Resp BP BP Pulse Ox 02/27/17 11:24 97.9 F 126/62 02/27/17 10:54 18 02/27/17 07:46 97.9 F 69 18 126/62 95 - General General Appearance: Alert, Cooperative, No acute distress - Head Head exam: Atraumatic, Normocephalic - Neck Neck exam: Normal inspection - Respiratory Respiratory exam: Normal lung sounds bilaterally. negative: Accessory muscle use, Rales, Rhonchi, Wheezes - Cardiovascular Cardiovascular Exam: Regular rate, Normal rhythm, Normal heart sounds - GI/Abdominal GI/Abdominal exam: Soft, Normal bowel sounds - Rectal Rectal exam: Deferred - exam: Deferred - Extremities Extremities exam: Normal capillary refill, Pedal edema (LLE with trace edema; ankle remains swollen ). negative: Calf tenderness, Tenderness - Neurological Neurological exam: Abnormal gait, Alert. negative: Altered, Oriented X3 - Skin Skin exam: Dry, Intact, Normal color, Warm H&P Results - Labs Result Diagrams: 02/25/17 10:05 02/25/17 10:05 Discharge Potential - Discharge Needs Community Services Used Prior to Admission: Occupational Therapy, Physical Therapy Patient Discharge Plan Description: Return Home Community Services Needed at Discharge: Occupational Therapy, Physical Therapy Plan - Swing Bed Certification Initial Certification Due: 02/17/17 14 Day Re-Cert Due: 03/03/17 44 Day Re-Cert Due: 04/02/17 74 Day Re-Cert Due: 05/02/17 - Detailed Diagnosis and Plan (1) Bibasilar crackles Current Visit: Yes Status: Acute Base Code: R09.89 - OTH SYMPTOMS AND SIGNS INVOLVING THE CIRC AND RESP SYSTEMS Comment: 02/27/17- resolving. repeat CXR showed stable interstitial changes with resolving effusions. -continue lasix 20mg po daily with potassium 10mg po daily -2000cc fluid restriction -daily weights (2) Swelling of lower extremity Current Visit: Yes Status: Acute Base Code: M79.89 - OTHER SPECIFIED SOFT TISSUE DISORDERS Comment: 02/27/17- significantly improved following two days of diuretics. no associated pain. normal cap refill and pulses 2+. -elevate legs and add compression hose -continue xarelto.
[2017-02-28] MEDS: HYDROCODONE/APAP 7.5/325MG TABLET PO PRN ×2 (05:13→14:02)
[2017-02-28] MEDS: DOCUSATE SODIUM 100 MG CAPSULE PO SCH ×2 (09:48→22:37)
[2017-02-28] MEDS: MORPHINE SULFATE 15 MG TABLET.ER PO SCH ×2 (09:49→22:37)
[2017-02-28] MEDS: RIVAROXABAN 15 MG TABLET PO SCH (09:49)
[2017-02-28] MEDS: FUROSEMIDE 20 MG TABLET PO SCH (09:49)
[2017-02-28] MEDS: FERROUS SULFATE 325 MG TAB PO SCH ×2 (09:49→22:37)
[2017-02-28] MEDS: POTASSIUM CHLORIDE 10 MEQ TAB PO SCH (09:49)
[2017-02-28] MEDS: NAMENDA 14 MG PO SCH (09:51)
--- NOTE | 2017-02-28 11:33 | Physical Therapy Tx Note ---
Physical Therapy Tx Note - Treatment Note Tolerated: Fair Total Time Spent With Patient: 40 Physical Therapy Tx Note: Detail (Pt was resting in chair upon arrival with seat alarm intact. Pt had ice pack on left hip. Pt completed ther ex of ankle pumps, hip adduction with ball, hamstring curls with red theraband, LAQ all seated and bilateral x 10 - 15 each. Pt was able to stand with min assist x 1 from chair due to chair was not locked in place. Pt stated had use the bathroom prior to going for a walk. Pt was able to complete some self care after using bathroom but nursing was called to assist. Pt was able to stand independently to wash hands. Pt completed gait with front 2 wheeled walker x 100 ft. with contact guard assist. Pt returned to chair with alert intact, bedside table, nursing call within reach. Pt stated she needed to sit down due to fatigue and "I'm still dizzy.") Physical Therapy Problem List: Detail (1) Assistance with bed mobility and transfers 2) Limited ambulation with assistive device 3) Mental status 4) shortness of breath with activity 5) Decreased ability to complete prolonged physical activity) Physical Therapy Goals: 1) The patient will ambulate with assistive device household distances with CG/supervision. 2) The patient will ambulate on stairs with CG/minimal assist of 1. 3) the patient will be independent with sit to and from stand transfer and toilet transfer. 4) The patient will be independent with bed mobility. 5) The patient will be able to complete HEP with supervision of family members. 6) The patient will follow RIMA precautions with supervison and cueing of family members Prognosis: Good Physical Therapy Plan: PT M-F 1 to 2 times a day for gait training, transfer training, bed mobility and instruction in HEP.
--- NOTE | 2017-02-28 14:55 | Physical Therapy Tx Note ---
Physical Therapy Tx Note - Treatment Note Physical Therapy Tx Note: Detail (The patient refused PT this pm due to pain complaints.) Physical Therapy Problem List: Detail (1) Assistance with bed mobility and transfers 2) Limited ambulation with assistive device 3) Mental status 4) shortness of breath with activity 5) Decreased ability to complete prolonged physical activity) Physical Therapy Goals: 1) The patient will ambulate with assistive device household distances with CG/supervision. 2) The patient will ambulate on stairs with CG/minimal assist of 1. 3) the patient will be independent with sit to and from stand transfer and toilet transfer. 4) The patient will be independent with bed mobility. 5) The patient will be able to complete HEP with supervision of family members. 6) The patient will follow RIMA precautions with supervison and cueing of family members Physical Therapy Plan: PT M-F 1 to 2 times a day for gait training, transfer training, bed mobility and instruction in HEP.
[2017-03-01] MEDS: HYDROCODONE/APAP 7.5/325MG TABLET PO PRN ×2 (06:50→14:09)
[2017-03-01] MEDS: MORPHINE SULFATE 15 MG TABLET.ER PO SCH ×2 (11:06→23:00)
[2017-03-01] MEDS: POTASSIUM CHLORIDE 10 MEQ TAB PO SCH (11:06)
[2017-03-01] MEDS: FUROSEMIDE 20 MG TABLET PO SCH (11:07)
[2017-03-01] MEDS: FERROUS SULFATE 325 MG TAB PO SCH ×2 (11:07→23:00)
[2017-03-01] MEDS: RIVAROXABAN 15 MG TABLET PO SCH (11:07)
[2017-03-01] MEDS: DOCUSATE SODIUM 100 MG CAPSULE PO SCH ×2 (11:07→23:00)
[2017-03-01] MEDS: NAMENDA 14 MG PO SCH (11:10)
--- NOTE | 2017-03-01 12:01 | Physical Therapy Tx Note ---
Physical Therapy Tx Note - Treatment Note Tolerated: Good Total Time Spent With Patient: 20 Physical Therapy Tx Note: Detail (The patient's daughter was present for PT treatment. The patient was up in recliner when PT arrived. The patient was independent with sit to and from stand transfer. The patient ambulated with wheeled walker WBAT on the L LE a distance of 75 feet x 1 with CG /SBA of 1 for safety. The patient completed the following LE strengthening exercises in sitting including ankle pumps and hip abduction x 10 reps. The patient refused further activity due to fatigue. Improve gait pattern and posture was noted today.) Physical Therapy Problem List: Detail (1) Assistance with bed mobility and transfers 2) Limited ambulation with assistive device 3) Mental status 4) shortness of breath with activity 5) Decreased ability to complete prolonged physical activity) Physical Therapy Goals: 1) The patient will ambulate with assistive device household distances with CG/supervision. 2) The patient will ambulate on stairs with CG/minimal assist of 1. 3) the patient will be independent with sit to and from stand transfer and toilet transfer. 4) The patient will be independent with bed mobility. 5) The patient will be able to complete HEP with supervision of family members. 6) The patient will follow RIMA precautions with supervison and cueing of family members Physical Therapy Plan: PT M-F 1 to 2 times a day for gait training, transfer training, bed mobility and instruction in HEP.
--- NOTE | 2017-03-01 14:39 | Physical Therapy Tx Note ---
Physical Therapy Tx Note - Treatment Note Tolerated: Good Total Time Spent With Patient: 20 Physical Therapy Tx Note: Detail (The patient was in bathroom when PT arrived. The patient ambulated to wheelchair (11 feet) with wheeled walker independently. The patient acheived a car transfer with CG of 1, SBA of 1 for safety. The patient's daughter was present for car transfer. The patient left for doctor's appt. RN was notified.) Physical Therapy Problem List: Detail (1) Assistance with bed mobility and transfers 2) Limited ambulation with assistive device 3) Mental status 4) shortness of breath with activity 5) Decreased ability to complete prolonged physical activity) Physical Therapy Goals: 1) The patient will ambulate with assistive device household distances with CG/supervision. 2) The patient will ambulate on stairs with CG/minimal assist of 1. 3) the patient will be independent with sit to and from stand transfer and toilet transfer. 4) The patient will be independent with bed mobility. 5) The patient will be able to complete HEP with supervision of family members. 6) The patient will follow RIMA precautions with supervison and cueing of family members Physical Therapy Plan: PT M-F 1 to 2 times a day for gait training, transfer training, bed mobility and instruction in HEP.
[2017-03-02] MEDS: HYDROCODONE/APAP 7.5/325MG TABLET PO PRN ×2 (06:35→17:23)
[2017-03-02] MEDS: DOCUSATE SODIUM 100 MG CAPSULE PO SCH ×2 (09:49→22:24)
[2017-03-02] MEDS: FERROUS SULFATE 325 MG TAB PO SCH ×2 (09:49→22:24)
[2017-03-02] MEDS: MORPHINE SULFATE 15 MG TABLET.ER PO SCH ×2 (09:49→22:24)
[2017-03-02] MEDS: RIVAROXABAN 15 MG TABLET PO SCH (09:49)
[2017-03-02] MEDS: FUROSEMIDE 20 MG TABLET PO SCH (09:50)
[2017-03-02] MEDS: NAMENDA 14 MG PO SCH (09:50)
[2017-03-02] MEDS: POTASSIUM CHLORIDE 10 MEQ TAB PO SCH (09:50)
--- NOTE | 2017-03-02 10:33 | Physical Therapy Tx Note ---
Physical Therapy Tx Note - Treatment Note Tolerated: Good Total Time Spent With Patient: 35 Physical Therapy Tx Note: Detail (Patient was reclined in chair upon SECTION PLOTTER OPERATOR arrival. Patient complains of dizziness with sitting, standing, and ambulating. Patient trasferred sit to and from stand CGA x1. Patient ambulated 50 feet with wheeled walker SBA x1. Patient transferred sit to and from stand CGA x1. Patient ambulated 8 feet with wheeled walker CGA x1. Patient performed the following exercises x10 reps each: seated heel raises, seated toe raises, seated marching, LAQ, hamstring curls with red theraband, seated hip abduction with red theraband, isometric hip adduction, and glut squeezes. Patient tolerated treatment well. Patient reports increased pain in left hip with ambulation and exercises. Patient displays decreased strength and endurance with glut squeezes, isometric hip adduction, and seated hip abduction with theraband. Patient was left reclined in chair with call light within reach.) Physical Therapy Problem List: Detail (1) Assistance with bed mobility and transfers 2) Limited ambulation with assistive device 3) Mental status 4) shortness of breath with activity 5) Decreased ability to complete prolonged physical activity) Physical Therapy Goals: 1) The patient will ambulate with assistive device household distances with CG/supervision. 2) The patient will ambulate on stairs with CG/minimal assist of 1. 3) the patient will be independent with sit to and from stand transfer and toilet transfer. 4) The patient will be independent with bed mobility. 5) The patient will be able to complete HEP with supervision of family members. 6) The patient will follow RIMA precautions with supervison and cueing of family members Prognosis: Good Physical Therapy Plan: PT M-F 1 to 2 times a day for gait training, transfer training, bed mobility and instruction in HEP.
--- NOTE | 2017-03-02 14:38 | Physical Therapy Tx Note ---
Physical Therapy Tx Note - Treatment Note Tolerated: Fair Total Time Spent With Patient: 40 Physical Therapy Tx Note: Detail (Pt. ambulated ~20 feet with CGA and front wheeled walker. Pt. requested to be seated due to fatigue and feeling "bad" today. Pt. performed B knee flexion and extension against minimal resistance for 10 reps each LE, PT performed PROM to improve L hip abduction and ER for 10 reps each direction to end range. PT readjusted adriel hose on left to avoid tourniquette effect. She reported deacreased pain from 10/10 at start of tx to less than 8/10 following tx. Pt. was left seated with call light available and nursing was notified of pt.'s status. Pt. was min assist x1 with sit to stand and stand to sit transfer.) Physical Therapy Problem List: Detail (1) Assistance with bed mobility and transfers 2) Limited ambulation with assistive device 3) Mental status 4) shortness of breath with activity 5) Decreased ability to complete prolonged physical activity) Physical Therapy Goals: 1) The patient will ambulate with assistive device household distances with CG/supervision. 2) The patient will ambulate on stairs with CG/minimal assist of 1. 3) the patient will be independent with sit to and from stand transfer and toilet transfer. 4) The patient will be independent with bed mobility. 5) The patient will be able to complete HEP with supervision of family members. 6) The patient will follow RIMA precautions with supervison and cueing of family members Prognosis: Moderate Physical Therapy Plan: PT M-F 1 to 2 times a day for gait training, transfer training, bed mobility and instruction in HEP.
[2017-03-03] MEDS: POTASSIUM CHLORIDE 10 MEQ TAB PO SCH (09:10)
[2017-03-03] MEDS: MORPHINE SULFATE 15 MG TABLET.ER PO SCH ×2 (09:10→21:34)
[2017-03-03] MEDS: DOCUSATE SODIUM 100 MG CAPSULE PO SCH ×2 (09:11→21:37)
[2017-03-03] MEDS: RIVAROXABAN 15 MG TABLET PO SCH (09:11)
[2017-03-03] MEDS: FERROUS SULFATE 325 MG TAB PO SCH ×2 (09:11→21:37)
[2017-03-03] MEDS: NAMENDA 14 MG PO SCH (09:12)
[2017-03-03] MEDS: FUROSEMIDE 20 MG TABLET PO SCH (09:12)
--- NOTE | 2017-03-03 11:19 | Physical Therapy Tx Note ---
Physical Therapy Tx Note - Treatment Note Tolerated: Fair Total Time Spent With Patient: 20 Physical Therapy Tx Note: Detail (Patient was reclined in chair upon ELECTRIC OPERATOR arrival. Patient states left shoulder and hip sore today. Patient complains of dizziness. Patient declined ambulation due to dizziness. Patient performed the following exercises seated in chair x10 reps each: seated marching, LAQ, hamstring curls with red theraband, seated hip abduction with red theraband, isometric hip adduction, seated heel raises, seated toe raises, glut squeezes, and abdominal isometrics. Patient displays decreased strength and endurance with glut squeezes, abdominal isometrics, seated marching, and seated hip abduction with theraband. Patient declined further exercises due to not feeling well. Patient was left reclined in chair with call light within reach.) Physical Therapy Problem List: Detail (1) Assistance with bed mobility and transfers 2) Limited ambulation with assistive device 3) Mental status 4) shortness of breath with activity 5) Decreased ability to complete prolonged physical activity) Physical Therapy Goals: 1) The patient will ambulate with assistive device household distances with CG/supervision. 2) The patient will ambulate on stairs with CG/minimal assist of 1. 3) the patient will be independent with sit to and from stand transfer and toilet transfer. 4) The patient will be independent with bed mobility. 5) The patient will be able to complete HEP with supervision of family members. 6) The patient will follow RIMA precautions with supervison and cueing of family members Prognosis: Good Physical Therapy Plan: PT M-F 1 to 2 times a day for gait training, transfer training, bed mobility and instruction in HEP.
[2017-03-03] MEDS: [UNRECOGNIZED DRUG - OTHER] TOP PRN (13:25)
--- NOTE | 2017-03-03 13:51 | Physical Therapy Tx Note ---
Physical Therapy Tx Note - Treatment Note Physical Therapy Tx Note: Detail (Patient refused treatment due to dizziness and not feeling well. Patient refused ambulation and exercises.) Physical Therapy Problem List: Detail (1) Assistance with bed mobility and transfers 2) Limited ambulation with assistive device 3) Mental status 4) shortness of breath with activity 5) Decreased ability to complete prolonged physical activity) Physical Therapy Goals: 1) The patient will ambulate with assistive device household distances with CG/supervision. 2) The patient will ambulate on stairs with CG/minimal assist of 1. 3) the patient will be independent with sit to and from stand transfer and toilet transfer. 4) The patient will be independent with bed mobility. 5) The patient will be able to complete HEP with supervision of family members. 6) The patient will follow RIMA precautions with supervison and cueing of family members Prognosis: Good Physical Therapy Plan: PT M-F 1 to 2 times a day for gait training, transfer training, bed mobility and instruction in HEP.
[2017-03-03] MEDS: HYDROCODONE/APAP 7.5/325MG TABLET PO PRN (17:41)
[2017-03-03] MEDS ORDERED: HYDROCORTISONE RC PRN (17:56)
[2017-03-04] MEDS: HYDROCODONE/APAP 7.5/325MG TABLET PO PRN (05:57)
[2017-03-04] MEDS: RIVAROXABAN 15 MG TABLET PO SCH (09:50)
[2017-03-04] MEDS: DOCUSATE SODIUM 100 MG CAPSULE PO SCH ×2 (09:50→21:06)
[2017-03-04] MEDS: POTASSIUM CHLORIDE 10 MEQ TAB PO SCH (09:50)
[2017-03-04] MEDS: FUROSEMIDE 20 MG TABLET PO SCH (09:50)
[2017-03-04] MEDS: MORPHINE SULFATE 15 MG TABLET.ER PO SCH ×2 (09:50→21:05)
[2017-03-04] MEDS: NAMENDA 14 MG PO SCH (09:51)
[2017-03-04] MEDS: FERROUS SULFATE 325 MG TAB PO SCH ×2 (09:51→21:06)
[2017-03-04] MEDS: [UNRECOGNIZED DRUG - OTHER] TOP PRN (09:53)
[2017-03-05] MEDS: HYDROCODONE/APAP 7.5/325MG TABLET PO PRN ×2 (01:41→18:57)
[2017-03-05] MEDS: MORPHINE SULFATE 15 MG TABLET.ER PO SCH ×2 (09:13→21:09)
[2017-03-05] MEDS: FUROSEMIDE 20 MG TABLET PO SCH (09:14)
[2017-03-05] MEDS: DOCUSATE SODIUM 100 MG CAPSULE PO SCH ×2 (09:14→21:09)
[2017-03-05] MEDS: FERROUS SULFATE 325 MG TAB PO SCH ×2 (09:14→21:09)
[2017-03-05] MEDS: POTASSIUM CHLORIDE 10 MEQ TAB PO SCH (09:15)
[2017-03-05] MEDS: RIVAROXABAN 15 MG TABLET PO SCH (09:15)
[2017-03-05] MEDS: NAMENDA 14 MG PO SCH (11:09)
--- NOTE | 2017-03-06 09:20 | Physical Therapy Tx Note ---
Physical Therapy Tx Note - Treatment Note Tolerated: Good Total Time Spent With Patient: 30 Physical Therapy Tx Note: Detail (Patient was reclined in chair upon CREDIT REPORTER arrival. Patient complains of dizziness. Patient transferred sit to and from stand SBA x1. Patient ambulated 50 feet with wheeled walker SBA x1. Patient performed the following exercises seated in chair x15 reps each: seated heel raises, seated toe raises, seated marching, LAQ, hamstring curls with red theraband, seated hip abduction with red theraband, glut squeezes, abdominal isometrics, and adductor squeezes. Patient transferred sit to and from stand SBA x1. Patient ambulated 5 feet with wheeled walker SBA x1. Patient transferred sit to supine independently. Patient performed bed mobility independently. Patient tolerated treatment well. Patient displays decreased strength and endurance with LAQ, glut squeezes, abdominal isometrics, and seated hip abduction. Patient declined standing exercises due to dizziness. Patient was left reclined in bed with call light within reach and bed alarm on, nursing was notified.) Physical Therapy Problem List: Detail (1) Assistance with bed mobility and transfers 2) Limited ambulation with assistive device 3) Mental status 4) shortness of breath with activity 5) Decreased ability to complete prolonged physical activity) Physical Therapy Goals: 1) The patient will ambulate with assistive device household distances with CG/supervision. 2) The patient will ambulate on stairs with CG/minimal assist of 1. 3) the patient will be independent with sit to and from stand transfer and toilet transfer. 4) The patient will be independent with bed mobility. 5) The patient will be able to complete HEP with supervision of family members. 6) The patient will follow RIMA precautions with supervison and cueing of family members Prognosis: Good Physical Therapy Plan: PT M-F 1 to 2 times a day for gait training, transfer training, bed mobility and instruction in HEP.
[2017-03-06] MEDS: FUROSEMIDE 20 MG TABLET PO SCH (10:40)
[2017-03-06] MEDS: RIVAROXABAN 15 MG TABLET PO SCH (10:40)
[2017-03-06] MEDS: DOCUSATE SODIUM 100 MG CAPSULE PO SCH ×2 (10:41→21:31)
[2017-03-06] MEDS: POTASSIUM CHLORIDE 10 MEQ TAB PO SCH (10:41)
[2017-03-06] MEDS: FERROUS SULFATE 325 MG TAB PO SCH ×2 (10:41→21:31)
[2017-03-06] MEDS: MORPHINE SULFATE 15 MG TABLET.ER PO SCH ×2 (10:41→21:31)
[2017-03-06] MEDS: NAMENDA 14 MG PO SCH (10:44)
--- NOTE | 2017-03-06 15:24 | Physical Therapy Tx Note ---
Physical Therapy Tx Note - Treatment Note Tolerated: Fair Total Time Spent With Patient: 30 Physical Therapy Tx Note: Detail (Patient states continued dizziness this afternoon. Patient declined ambulation due to dizziness. Patient performed the following exercises x15 reps each: seated marching, LAQ, hamstring curls with red theraband, seated hip abduction with red theraband, isometric hip adduction, isometric abdominals, glut squeezes, seated heel raises, and seated toe raises. Patient transferred sit to and from stand x2 SBA x1. Patient ambulated 10 feet x2 with wheeled walker SBA x1. Patient transferred sit to supine independently. Patient was left reclined in bed with call light within reach and bed alarm on.) Physical Therapy Problem List: Detail (1) Assistance with bed mobility and transfers 2) Limited ambulation with assistive device 3) Mental status 4) shortness of breath with activity 5) Decreased ability to complete prolonged physical activity) Physical Therapy Goals: 1) The patient will ambulate with assistive device household distances with CG/supervision. 2) The patient will ambulate on stairs with CG/minimal assist of 1. 3) the patient will be independent with sit to and from stand transfer and toilet transfer. 4) The patient will be independent with bed mobility. 5) The patient will be able to complete HEP with supervision of family members. 6) The patient will follow RIMA precautions with supervison and cueing of family members Prognosis: Good Physical Therapy Plan: PT M-F 1 to 2 times a day for gait training, transfer training, bed mobility and instruction in HEP.
[2017-03-06] MEDS: HYDROCODONE/APAP 7.5/325MG TABLET PO PRN (17:38)
[2017-03-07] MEDS: HYDROCODONE/APAP 7.5/325MG TABLET PO PRN ×2 (05:10→13:31)
--- NOTE | 2017-03-07 09:43 | Rehab Discharge Summary ---
Patient Information - Patient Information Diagnosis: L RIMA revision Ordered Treatment: PT Evaluate and Treat Surgery: Yes (Left RIMA revision) Date of Surgery: 02/14/17 Past Medical/Surgical Hx: PAST MEDICAL/SURGICAL HISTORY Past Surgical History D&C; cholecystectomy; left hip hemiarthroplasty 2004; tubal ligation; total hysterectomy;left and right total knee replacement; wrist sx PMH - Respiratory Hx Respiratory Disorders Yes Hx Asthma Yes Hx Bronchitis Yes Hx Chronic Obstructive Yes Pulmonary Disease (COPD) Hx Dyspnea Yes Hx Pneumonia Yes Hx Sleep Apnea Yes Hx Tuberculosis No: past + ppd Hx of CPAP No Hx of SOB Yes Hx of Oxygen Therapy Yes Comment: hx sinus problems PMH - Cardiovascular Hx Cardiovascular Disorders Yes Hx Abnormal EKG Yes Hx Cardiac Catheterization Yes: x2 Hx Edema Yes: ankles-none today Hx Heart Attack No Hx Hypertension Yes Hx Hypotension Yes Hx Irregular Heartbeat Yes: hx A-fib Hx Coronary Artery Disease Yes Hx of Mitral Valve Prolapse Yes Hx Transient Ischemic Attacks Yes (TIA) Comment: hyperlipidemia PMH - Neuro Hx Neurological Disorders Yes Hx Dementia Yes Hx Dizziness Yes Hx Headaches Yes Hx Neuropathy No Hx Parkinson's Disease No Hx Seizures No Hx Syncope No Hx Transient Ischemic Attacks Yes (TIA) PMH - GI Hx Gastrointestinal Disorders Yes Hx Abdominal Pain Yes Hx Celiac Disease No Hx Crohn's Disease No Hx Diverticulitis No Hx Gastrointestinal Bleed No Hx Gastroesophageal Reflux Yes Hx Hepatitis/Jaundice No Hx Hiatal Hernia Yes Hx Irritable Bowel Yes: constip & loose diarrhea Hx Liver Disease No Hx Nausea/Vomiting Yes Hx Obstructive Bowel No Hx Pancreatitis No Hx Rectal Bleeding Yes: sometimes with hemmorrhoids Hx Ulcer No Hx Weight Loss/Weight Gain No Comment: constipation PMH - Hx Genitourinary Disorders Yes Patient No Hx Bladder Problem Yes: wears Depends Hx Dialysis No Hx Kidney Stones No Hx Renal Disease No Hx Urinary Tract Infection No PMH - Endocrine Hx Endocrine Disorders No Hx Diabetes No Hx Thyroid Disease No PMH - Musculoskeletal Hx Musculoskeletal Disorders Yes Hx Arthritis Yes: soteo & rheumatoid Hx Back Injury Yes: broken back Hx Fibromyalgia No Hx Gout No Hx Musculoskeletal Disease No Hx Osteoporosis Yes PMH - Psych Hx Psychiatric Problems Yes Hx Anxiety Yes Hx Behavior Problems No Hx Depression No Hx Emotional Abuse No Hx Sexual Abuse No Hx Suicide Attempt No PMH - Hematology/Oncology Hx Hematology/Oncology No Disorders Hx Anemia Yes Hx Blood Disorders No Hx Bruising No Hx Cancer No Hx Chemotherapy No Hx Radiation Therapy No Hx Clotting Problems No Hx Sickle Cell Disease No Hx Unexplained Bleeding No Hx Blood Transfusion Reaction No Premorbid Status: Detail (The patient lives with granddaughter in a 2 story house with pt living primarily on the 1st floor. She has 3 steps at the entrance without handrails (family assists with climbing the steps). She has a tub/shower combination with a tub seat with grab bars and a standard height toilet with a commode. Prior to surgery the patients granddaughter assisted with dressing and showering activities. The patient was not responsible for home mgmt, meal prep and laundry. She has a wheeled walker, cane and a wheelchair. The patient was ambulatory with assistive device prior to surgery.) Social History: Detail (Supportive family.) Precautions: [place], Fall, Other (WBAT on the L LE and RIMA precautions. The patient has a hip abductor pillow.) - Time With Patient Total Time Spent With Patient (Min): 30 Treatment Procedures: Detail (Re-evaluation, gait training) Subjective Information - Subjective Information Per Patient (The patient had no complaints of pain.) Objective Data - Mental Status Patient Orientation: Oriented x3 (The patient follows simple commands but can not recall RIMA precautions.) - ROM Within normal limits (The patient's LE AROM is WNL , L hip in WNL within total hip precautions.) - Strength/Tone Not within normal limits (The patient's R LE strength is generally 5/5. The patient's L LE strength is in hip flexors and hip adductors 4-/5, hip abductors and extensors 3+/5.) - Bed Mobility Independent (The patient is independent with supine to and from sit transfer and scooting up in bed.) - Transfers Independent (The patient is independent with sit to and from stand transfer and toilet transfer.) - Balance Balance Sitting: Good Balance Standing: Good (The patient was able to stand without support and wash hands and complete other ADL activities.) - Gait Detail (The patient ambulates with wheeled walker independently/supervision WBAT on the L LE a distance of 100 feet plus.) Therapy Assessment - Therapy Assessment Detail (The patient has improved strength , mobility and ambulation endurance. The patient continues to require verbal cues to recall total hip precautions. The patient is to receive home PT.) Patient Education - Patient Education Teaching Topic: Equipment Use, Exercise/Activity (THR precautions.) Response: Return Demonstration Teaching Method: Demonstration, Handout Teaching Recipient: Patient Barriers To Learning: Age Related Problem List - Problem List Physical Therapy Problem List: Detail (1) Assistance with bed mobility and transfers 2) Limited ambulation with assistive device 3) Mental status 4) shortness of breath with activity 5) Decreased ability to complete prolonged physical activity) Occupational Therapy Problem List: Detail (1. Decreased Ind with total body dressing 2. Decreased Ind with showering 3. Decreased endurance needed for safe and Ind ADLs and functional mobility 4. Decreased left UE function) Goals - Goals Physical Therapy Goals: GOALS MET: 1) The patient will ambulate with assistive device household distances with CG/supervision. 2) The patient will ambulate on stairs with CG/minimal assist of 1. 3) the patient will be independent with sit to and from stand transfer and toilet transfer. 4) The patient will be independent with bed mobility. 5) The patient will be able to complete HEP with supervision of family members. 6) The patient will follow RIMA precautions with supervison and cueing of family members Occupational Therapy Goals: 1. Pt will be Ind with total body dressing with use of adaptive equipment to maintain THR precautions. 2. Pt will be Ind with total body showering in sitting. 3. Pt will demonstrate improved endurance needed for safe and Ind ADLs and functional mobility Plan - Plan Physical Therapy Plan: The patient is discharging from PT today and is to receive home PT. Occupational Therapy Plan: OT 2-4 days per week to address self cares, functional mobility, UE function and endurance to allow safe return home with family.
[2017-03-07] MEDS: DOCUSATE SODIUM 100 MG CAPSULE PO SCH (10:54)
[2017-03-07] MEDS: FERROUS SULFATE 325 MG TAB PO SCH (10:54)
[2017-03-07] MEDS: MORPHINE SULFATE 15 MG TABLET.ER PO SCH (10:54)
[2017-03-07] MEDS: RIVAROXABAN 15 MG TABLET PO SCH (10:55)
[2017-03-07] MEDS: POTASSIUM CHLORIDE 10 MEQ TAB PO SCH (10:55)
[2017-03-07] MEDS: FUROSEMIDE 20 MG TABLET PO SCH (10:55)
[2017-03-07] MEDS: NAMENDA 14 MG PO SCH (10:55)
--- NOTE | 2017-03-07 12:11 | Discharge Summary ---
Providers Discharge Summary Date: 03/07/17 Date of admission: 02/17/17 14:27 Expected Date of Discharge: 03/07/17 Attending physician: Antonio Easley Primary care physician: BARBARA BARNHART M.D. Physical Exam - Vital Signs Vital Signs: Vital Signs - Last 24 Hrs Temp Pulse Pulse Resp BP Pulse Ox 03/07/17 05:15 98.8 F 76 18 128/79 97 03/06/17 14:14 16 03/06/17 14:12 77 16 95 - General General Appearance: Alert, Cooperative, No acute distress - Head Head exam: Atraumatic, Normocephalic - Neck Neck exam: Normal inspection - Respiratory Respiratory exam: Normal lung sounds bilaterally. negative: Accessory muscle use, Rales, Rhonchi, Wheezes - Cardiovascular Cardiovascular Exam: Regular rate, Normal rhythm, Normal heart sounds - GI/Abdominal GI/Abdominal exam: Soft, Normal bowel sounds - Rectal Rectal exam: Deferred - exam: Deferred - Extremities Extremities exam: Normal capillary refill, Pedal edema (LLE with trace edema; ankle remains swollen ). negative: Calf tenderness, Tenderness - Neurological Neurological exam: Abnormal gait, Alert. negative: Altered, Oriented X3 - Skin Skin exam: Dry, Intact, Normal color, Warm Hospitalization - Hospitalization Admission Diagnosis: left total hip replacement - Problem List/Discharge Diagnosis (1) History of arthroplasty Plan: Summary: 81 y/o female with left total hip athroplasty on 02/14. She has since been ambulatory with assistance and progressing with daily PT/OT. The patient has had a three week course of daily PT/OT and assistance with ambulation. She was maintained on [place] 7.5mg and Ms Contin 15mg which provided adequate control of her pain while admitted. There was initial concern regarding her daily regimen of pain medication but the patient appears to be tolerating the current dose well. Fall precautions were in place. Status: Acute Base Code: Z98.890 - OTHER SPECIFIED POSTPROCEDURAL STATES (2) Dementia Plan: - the patient has Alzheimer's dementia and cont on Namenda 15mg QD . Status: Chronic Discharge Diagnosis: Dementia type: Alzheimer's disease Base Code: F03.90 - UNSPECIFIED DEMENTIA WITHOUT BEHAVIORAL DISTURBANCE - Disposition Will require further assessment over the next 48 hours to determine complete needs and goals of care. Disposition will be updated at that time. - Hospitalization Course Disposition: Home, Self-Care Hospital Course: Ms. Kimbrough is an 81 y/o female with advanced dementia who was admitted status post total hip athroplasty. She received daily PT/OT for deconditioning s/p left hip athrolplasy. Procedures: Imaging and X-Rays 02/20/17 13:44 HIP,UNILAT, 1 VIEW LEFT [RAD] Stat 02/21/17 08:49 CHEST AP or PA ONLY [RAD] Stat 02/26/17 09:05 CHEST 2 VIEWS [RAD] Stat Abnormal Labs: Abnormal Lab Results 02/25/17 02/25/17 Range/Units 10:05 10:05 RBC 2.87 L (3.80-5.40) M/uL Hgb 8.6 L (11.6-16.0) gm/dl Hct 28.1 L (35.0-47.0) % MCV 97.9 H (81-97) fl MCHC 30.6 L (32-36) g/dl RDW 15.3 H (11.5-14.5) % Plt Count 412 H (130-400) K/uL Lymphocytes 13.0 L (16-45) % Eosinophil Count 12.0 H (0-6) % Random Glucose 111 H (74-109) mg/dL Calcium 8.2 L (8.8-10.2) mg/dL Total Protein 5.9 L (6.6-8.7) g/dL Albumin 2.9 L (4.0-5.0) g/dL Albumin/Globulin Ratio 1.0 L (1.1-1.8) Condition at Discharge: (1) Good Discharge Medications - Discharge Medications Prescriptions: Albuterol Sulfate 0.083% [Neb] 2.5 mg INH RESP.Q4H.WA PRN #30 neb PRN Reason: Cough Ferrous Sulfate [Iron] 325 mg PO BID #60 tab Hydrocortisone Acetate [Anucort-Hc] 25 mg RC NOW PRN #7 supp PRN Reason: Hemorrhoids Home Medications: Ambulatory Orders Albuterol Sulfate 0.083% [Neb] 2.5 mg INH RESP.Q4H.WA PRN #30 neb 03/07/17 [ Last Taken Unknown] Ferrous Sulfate [Iron] 325 mg PO BID #60 tab 03/07/17 [Last Taken Unknown] Furosemide [Lasix] 20 mg PO DAILY 03/07/17 [Last Taken Unknown] Hydrocortisone Acetate [Anucort-Hc] 25 mg RC NOW PRN #7 supp 03/07/17 [Last Taken Unknown] Magnesium Hydroxide/Al Hydrox [Maalox] 30 ml PO Q6H PRN 03/07/17 [Last Taken Unknown] Potassium Chloride [Klor-Con] 10 meq PO DAILY 03/07/17 [Last Taken Unknown] Discharge Plan - Discharge Instructions Instructions: Total Hip Replacement (DC) Quality Measures - Quality Measures Quality Measures: Advance Directives, Documentation of Current Medications in Medical Record, Elder Maltreatment Screen and Follow-Up Plan, Screening for High Blood Pressure and F/U Documented - Current Medications Quality Measure: Measure #130: Documentation of Current Medications Documentation of Current Medications: <Current Medications Documented/Reviewed> [G8427] - Blood Pressure Screening Quality Measure: Screening for High Blood Pressure and Follow-Up Documented Does Patient Have Any of the Following: Active Dx of HTN Blood Pressure Classification: Normal BP Reading Systolic Measurement: 110 Diastolic Measurement: 65 Screening for High Blood Pressure: Patient Exclusion, Hx of HTN [G9744] - Advance Directives Quality Measure: Measure #47: Care Plan Advance Directives Established: No Advance Directives Information Provided To Patient: Already Provided Advance Directives on File: No Living Will: No Power of Wireless Technician: No Advance Care Planning: <Care Plan/Decision Maker Documented; Discussed & Documented> [1123F] - Elder Abuse Suspicion Index Screening: Elder Abuse Suspicion Index Screening Rely on people for bathing, dressing, shopping, banking, etc: No Prevented from getting food, clothes, medication, etc: No Made to feel shamed or threatened by someone: No Forced to sign papers or use money against will: No Feel afraid, touched in ways not wanted or hurt physically: No Poor eye contact, withdrawn, malnourished, cuts or bruises: No Screening Result: Negative result EASI Reference Information: Jen LOERA, Anabel C, Jenna D, Tone Young.Development and validation of a tool to assist physicians identification of elder abuse: The Elder Abuse Suspicion Index (EASI ). Journal of Elder Abuse and Neglect, 2008; 20 (3): 276-300. - Elder Maltreatment Screen Quality Measures: Elder Maltreatment Screen and Follow-Up Plan Elder Maltreatment Screen: <Negative, No Follow-Up Plan Required> [H6044]
--- NOTE | 2017-03-07 14:19 | Physical Therapy Tx Note ---
Physical Therapy Tx Note - Treatment Note Tolerated: Good Total Time Spent With Patient: 30 Physical Therapy Tx Note: Detail (Patient states no new complaints. Patient transferred sit to and from stand SBA x1. Patient ambulated 50 feet with wheeled walker SBA x1. Patient performed the following exercises: standing heel raises x10, standing toe raises x10, standing marching x5, LAQ x10, seated hip abduction with red theraband x10, seated hamstring curls with red theraband x10, glut squeezes x10, and abdominal isometrics x10. Patient tolerated treatment well. Patient reports being tired after treatment. Patient was left seated in chair with call light within reach.) Physical Therapy Problem List: Detail (1) Assistance with bed mobility and transfers 2) Limited ambulation with assistive device 3) Mental status 4) shortness of breath with activity 5) Decreased ability to complete prolonged physical activity) Physical Therapy Goals: GOALS MET: 1) The patient will ambulate with assistive device household distances with CG/supervision. 2) The patient will ambulate on stairs with CG/minimal assist of 1. 3) the patient will be independent with sit to and from stand transfer and toilet transfer. 4) The patient will be independent with bed mobility. 5) The patient will be able to complete HEP with supervision of family members. 6) The patient will follow RIMA precautions with supervison and cueing of family members Prognosis: Good Physical Therapy Plan: The patient is discharging from PT today and is to receive home PT.
--- NOTE | 2017-03-07 14:19 | Rehab Discharge Summary ---
Patient Information - Patient Information Diagnosis: L RIMA revision Ordered Treatment: OT Evaluate and Treat Surgery: Yes (Left RIMA revision) Date of Surgery: 02/14/17 Past Medical/Surgical Hx: PAST MEDICAL/SURGICAL HISTORY Past Surgical History D&C; cholecystectomy; left hip hemiarthroplasty 2004; tubal ligation; total hysterectomy;left and right total knee replacement; wrist sx PMH - Respiratory Hx Respiratory Disorders Yes Hx Asthma Yes Hx Bronchitis Yes Hx Chronic Obstructive Yes Pulmonary Disease (COPD) Hx Dyspnea Yes Hx Pneumonia Yes Hx Sleep Apnea Yes Hx Tuberculosis No: past + ppd Hx of CPAP No Hx of SOB Yes Hx of Oxygen Therapy Yes Comment: hx sinus problems PMH - Cardiovascular Hx Cardiovascular Disorders Yes Hx Abnormal EKG Yes Hx Cardiac Catheterization Yes: x2 Hx Edema Yes: ankles-none today Hx Heart Attack No Hx Hypertension Yes Hx Hypotension Yes Hx Irregular Heartbeat Yes: hx A-fib Hx Coronary Artery Disease Yes Hx of Mitral Valve Prolapse Yes Hx Transient Ischemic Attacks Yes (TIA) Comment: hyperlipidemia PMH - Neuro Hx Neurological Disorders Yes Hx Dementia Yes Hx Dizziness Yes Hx Headaches Yes Hx Neuropathy No Hx Parkinson's Disease No Hx Seizures No Hx Syncope No Hx Transient Ischemic Attacks Yes (TIA) PMH - GI Hx Gastrointestinal Disorders Yes Hx Abdominal Pain Yes Hx Celiac Disease No Hx Crohn's Disease No Hx Diverticulitis No Hx Gastrointestinal Bleed No Hx Gastroesophageal Reflux Yes Hx Hepatitis/Jaundice No Hx Hiatal Hernia Yes Hx Irritable Bowel Yes: constip & loose diarrhea Hx Liver Disease No Hx Nausea/Vomiting Yes Hx Obstructive Bowel No Hx Pancreatitis No Hx Rectal Bleeding Yes: sometimes with hemmorrhoids Hx Ulcer No Hx Weight Loss/Weight Gain No Comment: constipation PMH - Hx Genitourinary Disorders Yes Patient No Hx Bladder Problem Yes: wears Depends Hx Dialysis No Hx Kidney Stones No Hx Renal Disease No Hx Urinary Tract Infection No PMH - Endocrine Hx Endocrine Disorders No Hx Diabetes No Hx Thyroid Disease No PMH - Musculoskeletal Hx Musculoskeletal Disorders Yes Hx Arthritis Yes: soteo & rheumatoid Hx Back Injury Yes: broken back Hx Fibromyalgia No Hx Gout No Hx Musculoskeletal Disease No Hx Osteoporosis Yes PMH - Psych Hx Psychiatric Problems Yes Hx Anxiety Yes Hx Behavior Problems No Hx Depression No Hx Emotional Abuse No Hx Sexual Abuse No Hx Suicide Attempt No PMH - Hematology/Oncology Hx Hematology/Oncology No Disorders Hx Anemia Yes Hx Blood Disorders No Hx Bruising No Hx Cancer No Hx Chemotherapy No Hx Radiation Therapy No Hx Clotting Problems No Hx Sickle Cell Disease No Hx Unexplained Bleeding No Hx Blood Transfusion Reaction No Premorbid Status: Detail (The patient lives with granddaughter in a 2 story house with pt living primarily on the 1st floor. She has 3 steps at the entrance without handrails (family assists with climbing the steps). She has a tub/shower combination with a tub seat with grab bars and a standard height toilet with a commode. Prior to surgery the patients granddaughter assisted with dressing and showering activities. The patient was not responsible for home mgmt, meal prep and laundry. She has a wheeled walker, cane and a wheelchair. The patient was ambulatory with assistive device prior to surgery.) Social History: Detail (Supportive family.) Precautions: [place], Fall, Other (WBAT on the L LE and RIMA precautions. The patient has a hip abductor pillow.) Subjective Information - Subjective Information Per Patient Objective Data - Pain Pain Present: No (No pain currently.) - Mental Status Patient Orientation: Person (pt able to follow commands and participate in therapy appropriately), Place - Visual Perception Appears within normal limits for therapeutic activities (glasses) - ROM Not within normal limits ([place] UE AROM WNL with exception of left shoulder flexion which is limited to 80 degrees due to premorbid arthritis.) - Strength/Tone Not within normal limits ([place] UE MMT 4+/5 except left shoulder flexion which is 4-/5) - Coordination Appears within normal limits for therapeutic activities - Bed Mobility Independent - Transfers Independent - Balance Balance Sitting: Good Balance Standing: Good - Sensation Intact - Gait Detail (Ambulating in room and hallway with 2 wheeled walker.) - ADL's/IADL's Detail (Pt was able to demonstrate Ind with total body dressing using adaptive equipment. Pt's granddaughter reports she usually assists pt with all self cares and demonstrated safety with showering pt on commode chair.) Therapy Assessment - Therapy Assessment Detail (Pt is safe and Ind with assisting her granddaughter with self care activities. She requires cues to remember total hip precautions.) Problem List - Problem List Physical Therapy Problem List: Detail (1) Assistance with bed mobility and transfers 2) Limited ambulation with assistive device 3) Mental status 4) shortness of breath with activity 5) Decreased ability to complete prolonged physical activity) Occupational Therapy Problem List: Detail (1. Decreased Ind with total body dressing 2. Decreased Ind with showering 3. Decreased endurance needed for safe and Ind ADLs and functional mobility 4. Decreased left UE function) Goals - Goals Physical Therapy Goals: GOALS MET: 1) The patient will ambulate with assistive device household distances with CG/supervision. 2) The patient will ambulate on stairs with CG/minimal assist of 1. 3) the patient will be independent with sit to and from stand transfer and toilet transfer. 4) The patient will be independent with bed mobility. 5) The patient will be able to complete HEP with supervision of family members. 6) The patient will follow RIMA precautions with supervison and cueing of family members Occupational Therapy Goals: Goals Met: 1. Pt will be Ind with total body dressing with use of adaptive equipment to maintain THR precautions. 3. Pt will demonstrate improved endurance needed for safe and Ind ADLs and functional mobility Goals partially met: 2. Pt will be Ind with total body showering in sitting. Prognosis - Prognosis Good Plan - Plan Physical Therapy Plan: The patient is discharging from PT today and is to receive home PT. Occupational Therapy Plan: Discharging home today with home OT/PT.
== END 2017-03-07 14:40 | disposition home or self-care (01) | DRG 951 ==
LOC: EDSTATUS 10:26 → UNDOADMIN 14:27 → MEDSURG 14:27
PROVIDERS: ADMIT Internal Medicine; ATTEND Internal Medicine
DX: Z98.890 Other specified postprocedural states (principal); J44.9 Chronic obstructive pulmonary disease, unspecified; I48.91 Unspecified atrial fibrillation; E78.00 Pure hypercholesterolemia, unspecified; M06.9 Rheumatoid arthritis, unspecified; M19.90 Unspecified osteoarthritis, unspecified site; M81.0 Age-related osteoporosis without current pathological fracture
CPT/HCPCS: 71010; 71020; 80053; 85027; 94640; 94760; 94761; 97110; 97116; 97165; 97530; 97535; 99306; 99308; 99309; 99316; J7613